=== PATIENT | male | born 1945 | race Caucasian/White ===

== ENCOUNTER 2020-11-13 00:18 | Inpatient (IN) ==
--- NOTE | 2020-11-13 00:31 | Emergency Department Note ---
ED Visit Note I have seen and examined this patient with Eusebio Robles and generally agree with the treatment plan as discussed. .
[2020-11-13] MEDS ORDERED: ONDANSETRON INJ 2 MG/ML 2 ML VIAL IV STA (00:34)
[2020-11-13] MEDS ORDERED: MoRPHine SULFATE 4 MG/ML 1 ML CARP\\VIAL IV STA (00:34)
--- NOTE | 2020-11-13 00:41 | Emergency Department Note ---
History of Present Illness General Chief complaint: Abdominal Pain Stated complaint: SWELLING/PAIN IN ABDOMEN Time Seen by Provider: 11/13/20 00:29 History of Present Illness Maximum Pain Intensity: 10 This is a 75-year-old male who presents to the emergency department via private vehicle with complaints of "swelling/pain in abdomen". The patient notes he began yesterday with some upper abdominal discomfort. He notes that it seemed to subside into today but then notes he ate dinner this evening and then pain seemed to worsen. He then vomited around 10 PM. Current pain 10/10. He feels quite bloated and notes his abdomen is distended. He points to the upper quadrants and epigastric region as a location of pain. He denies any fevers, chills, chest pain or shortness of breath. Last bowel movement was yesterday. His only abdominal surgery in the past was appendectomy. He also notes a history of back surgery. He notes pain is worse with pressing the abdomen as well as after eating. Home Medications Medication Instructions Recorded Confirmed Type allopurinol 300 mg PO QAM 11/13/20 11/13/20 History lisinopril 10 mg PO QAM 11/13/20 11/13/20 History multivitamin 1 tab PO DAILY 11/13/20 11/13/20 History rosuvastatin 10 mg PO DAILY 11/13/20 11/13/20 History Allergies Allergy/AdvReac Type Severity Reaction Status Date / Time No Known Allergies Allergy Unverified 11/13/20 01:19 Past Med/Surg History Medical History Dyslipidemia Gout Hypertension Surgical History History of appendectomy History of back surgery Social History Smoking Status: Former smoker Hx Alcohol Use: No Hx Substance Use: No Preferred Language: Mohawk Communication Ability: Effective Rn Neurosurgical Required: No Beliefs That Will Affect Care: None Current Living Situation: Spouse Feels Safe at Home: Yes Assistive Devices: Denture - Upper, Denture - Lower, Glasses, Hearing Aid - Left and Hearing Aid - Right Review of Systems A total of 10 systems reviewed and were otherwise negative Physical Exam Vital Signs Vital Signs - 24 hr 11/13/20 00:24 11/13/20 00:46 11/13/20 01:08 Temperature 35.7 C L Temperature Source Temporal Artery Scan Pulse Rate 99 H Pulse Rate [Bilateral Apical] 81 78 Respiratory Rate 18 20 20 Blood Pressure 166/105 H Blood Pressure [Left Arm] 148/99 H 137/91 Blood Pressure Mean 125 Blood Pressure Mean [Left Arm] 115 106 Pulse Oximetry 93 93 92 Oxygen Delivery Method Room Air Room Air Room Air Sepsis Recent Fever Within 48 Hours No Sepsis New/Unexplained Change in Mental Status N/A Sepsis Action Taken by Nursing No Action Required 11/13/20 01:26 11/13/20 02:14 11/13/20 02:57 Temperature 36.7 C Temperature Source Oral Pulse Rate Pulse Rate [Bilateral Apical] 77 72 Respiratory Rate 20 20 Blood Pressure Blood Pressure [Left Arm] 136/88 155/91 H Blood Pressure Mean Blood Pressure Mean [Left Arm] 104 112 Pulse Oximetry 92 94 Oxygen Delivery Method Room Air Room Air Sepsis Recent Fever Within 48 Hours Sepsis New/Unexplained Change in Mental Status Sepsis Action Taken by Nursing 11/13/20 03:09 11/13/20 04:37 Temperature Temperature Source Pulse Rate Pulse Rate [Bilateral Apical] 78 74 Respiratory Rate 20 20 Blood Pressure Blood Pressure [Left Arm] 131/86 142/90 H Blood Pressure Mean Blood Pressure Mean [Left Arm] 101 107 Pulse Oximetry 92 94 Oxygen Delivery Method Room Air Room Air Sepsis Recent Fever Within 48 Hours Sepsis New/Unexplained Change in Mental Status Sepsis Action Taken by Nursing VITAL SIGNS - Vital signs and nursing notes were reviewed. Hypertensive, mildly tachcyardic, hypothermic by triage assessment but not hypothermic on exam. GENERAL - 75-year-old male appearing his stated age who is in no acute distress. Communicates well with provider and answers questions appropriately. SKIN - Without rashes. HEAD - NC/AT. EYES - PERRL with EOMI bilaterally. Sclera anicteric. EARS - No deformities of external structures noted on gross examination bilaterally. NOSE - Midline and without cyanosis. No epistaxis or purulent drainage noted. MOUTH/OROPHARYNX - Without perioral cyanosis. NECK - Neck with FROM. No nuchal rigidity. LUNGS - Chest wall symmetric without accessory muscle use, intercostals retractions, or central cyanosis. Normal vesicular breath sounds CTA B/L. No wheezes, rales, or rhonchi appreciated. CARDIAC - RRR with S1/S2. No murmur, rubs, or gallops appreciated. ABDOMEN - Abdominal contour normal without pulsations or visible masses. BS normoactive all four quadrants. Epigastric abdominal tenderness palpation. The abdomen is not rigid but is somewhat tense to exam. There is rebound tenderness in the epigastric region. No palpable masses, hepatosplenomegaly, or ascites noted. EXTREMITIES - No clubbing or peripheral cyanosis. +5/5 strength noted in UE/LE bilaterally. NEUROLOGIC - Cranial nerves II through XII grossly intact. Sensory intact to light touch throughout. PSYCH - A&O, and cooperates fully with examiner. Pt is very pleasant and interacts well with examiner. Course Administered Medications Sodium Chloride (Nss 1000ml) 1,000 mls @ 75 mls/hr IV .[id number] [facility] Stop: 12/13/20 05:59 Last Admin: 11/13/20 06:06 Dose: 75 mls/hr Documented by: [id number] Discontinued Medications Sodium Chloride (Nss) 500 mls @ 125 mls/hr IV .Q4H [facility] Stop: 12/13/20 00:44 Last Admin: 11/13/20 06:08 Dose: Not Given Documented by: [id number] Infusion: 11/13/20 05:03 Dose: 0 mls/hr Documented by: [id number] Admin: 11/13/20 00:53 Dose: 125 mls/hr Documented by: [id number] Ioversol (Ioversol 100ml) 100 ml IV ONCE ONE Stop: 11/13/20 02:32 Last Admin: 11/13/20 02:31 Dose: 92 ml Documented by: [id number] Morphine Sulfate (Morphine Sulfate 4 Mg/Ml 1 Ml Carp\\Vial) 4 mg IV NOW STA Stop: 11/13/20 00:35 Last Admin: 11/13/20 00:53 Dose: 4 mg Documented by: [id number] Ondansetron HCl (Ondansetron Inj 2 Mg/Ml 2 Ml Vial) 4 mg IV NOW STA Stop: 11/13/20 00:35 Last Admin: 11/13/20 00:53 Dose: 4 mg Documented by: [id number] Medical Decision Making Laboratory Data Result diagrams: 11/13/20 00:39 11/13/20 00:39 Lab Results 11/13/20 11/13/20 11/13/20 Range/Units 00:39 00:39 02:55 WBC 11.30 H (4.8-10.8) K/uL RBC 4.98 (4.7-6.1) M/uL Hgb 16.3 (14.0-18.0) g/dL Hct 47.3 (42-52) % MCV 95.0 (80-100) fL MCH 32.7 (25-34) pg MCHC 34.5 (32-36) g/dL RDW Std Deviation 47.0 H (36.4-46.3) fL RDW Coeff of Samara 13.6 (11.5-14.5) % Plt Count 254 (130-400) K/uL MPV 9.2 (7.4-10.4) fL Immature Gran % (Auto) 0.2 % Neut % (Auto) 70.6 % Lymph % (Auto) 19.0 % [place] % (Auto) 9.7 % Eos % (Auto) 0.4 % Baso % (Auto) 0.1 % Neut # (Auto) 7.98 H (1.4-6.5) K/uL Lymph # (Auto) 2.15 (1.2-3.4) K/uL [place] # (Auto) 1.10 H (0.11-0.59) K/uL Eos # (Auto) 0.04 (0-0.5) K/uL Baso # (Auto) 0.01 (0-0.2) K/uL Immature Gran # (Auto) 0.02 (0.00-0.02) K/uL Sodium 139 (136-145) mmol/L Potassium 4.1 (3.5-5.1) mmol/L Chloride 105 (98-107) mmol/L Carbon Dioxide 26 (21-32) mmol/L Anion Gap 8.0 (3-11) BUN 17 (7-18) mg/dl Creatinine 1.00 (0.6-1.4) mg/dl Est Cr Clr Drug Dosing 81.8 ml/min Est GFR ( Amer) 86.2 Est GFR (Non-Af Amer) 74.3 BUN/Creatinine Ratio 16.7 (10-20) Glucose 138 H (70-99) mg/dl Calcium 9.7 (8.5-10.1) mg/dl Magnesium 1.9 (1.8-2.4) mg/dl Total Bilirubin 0.5 (0.2-1) mg/dl AST 22 (15-37) U/L ALT 38 (12-78) U/L Alkaline Phosphatase 75 (45-117) U/L Total Protein 7.8 (6.4-8.2) gm/dl Albumin 4.0 (3.4-5.0) gm/dl Globulin 3.8 (2.5-4.0) gm/dl Albumin/Globulin Ratio 1.1 (0.9-2) Lipase 84 (73-393) U/L COVID-19 Eval [facility] SARS-CoV-2, RNA, NAAT (NEGATIVE) 11/13/20 Range/Units 02:55 WBC (4.8-10.8) K/uL RBC (4.7-6.1) M/uL Hgb (14.0-18.0) g/dL Hct (42-52) % MCV (80-100) fL MCH (25-34) pg MCHC (32-36) g/dL RDW Std Deviation (36.4-46.3) fL RDW Coeff of Samara (11.5-14.5) % Plt Count (130-400) K/uL MPV (7.4-10.4) fL Immature Gran % (Auto) % Neut % (Auto) % Lymph % (Auto) % [place] % (Auto) % Eos % (Auto) % Baso % (Auto) % Neut # (Auto) (1.4-6.5) K/uL Lymph # (Auto) (1.2-3.4) K/uL [place] # (Auto) (0.11-0.59) K/uL Eos # (Auto) (0-0.5) K/uL Baso # (Auto) (0-0.2) K/uL Immature Gran # (Auto) (0.00-0.02) K/uL Sodium (136-145) mmol/L Potassium (3.5-5.1) mmol/L Chloride (98-107) mmol/L Carbon Dioxide (21-32) mmol/L Anion Gap (3-11) BUN (7-18) mg/dl Creatinine (0.6-1.4) mg/dl Est Cr Clr Drug Dosing ml/min Est GFR ( Amer) Est GFR (Non-Af Amer) BUN/Creatinine Ratio (10-20) Glucose (70-99) mg/dl Calcium (8.5-10.1) mg/dl Magnesium (1.8-2.4) mg/dl Total Bilirubin (0.2-1) mg/dl AST (15-37) U/L ALT (12-78) U/L Alkaline Phosphatase (45-117) U/L Total Protein (6.4-8.2) gm/dl Albumin (3.4-5.0) gm/dl Globulin (2.5-4.0) gm/dl Albumin/Globulin Ratio (0.9-2) Lipase (73-393) U/L COVID-19 Eval Order SARS-CoV-2, RNA, NAAT NEGATIVE (NEGATIVE) Imaging Data Radiologist's Impression: CT ABDOMEN & PELVIS With Contrast: Distended bowel loops compatible with obstruction with the transition point at the mid lower abdomen where there is bowel wall thickening suggestive of enteritis. Mild mesenteric stranding/edema. Diverticulosis. Areas of mild colonic wall thickening or underdistention. Nephrolithiasis. Mild right renal pelviectasis or extrarenal pelvis. No evidence of ureteral stone. Fat-containing left inguinal hernia. Mild basilar densities, likely atelectasis. Radiologist: Nidhi West M.D. Study ready at 02:33 and initial results transmitted at 03:07 MDM Narrative Patient was seen and evaluated as above in room A12. Review was performed of nursing notes and vital signs. I did review pertinent previous visits and patient history. After obtaining a thorough history and physical examination the above work up was performed. Patient presents to us today with atraumatic abdominal pain. This worsened today after eating. He had episode of vomiting. On examination the patient does have a distended and tender abdomen. Exam consistent with that of likely bowel obstruction. Patient here was given IV fluids, IV morphine, IV Zofran. He is reevaluated with improvement. CT scan was obtained. This reveals bowel obstruction. NG tube placed. Patient feeling much better after this. I do believe that further evaluation and management inpatient setting is warranted. Case discussed with the general surgeon, Dr. Scott. His team will see the patient in the a.m. Will be admitted to medicine. Case then discussed with the hospitalist. Please refer to further documentation regarding his stay. Case was discussed with the attending physician. In the evaluation and treatment of this patient, the following differential diagnoses were considered: ASC, SD, Pneumonia, GERD, Cholecystitis, Ascending Cholangitis, Cholydocholithiasis, Bowel Obstruction, PE, Amongst Others. Impression & Plan SBO (small bowel obstruction), Acute upper abdominal pain Discharge Plan Visit Data Chief Complaint: Abdominal Pain Stated Complaint: SWELLING/PAIN IN ABDOMEN ED Provider: Monico Tirado ED Midlevel Provider: Eusebio Robles Discharge Problem: SBO (small bowel obstruction), Acute upper abdominal pain Patient Disposition: Admitted As Inpatient Condition: Good Discharge Instructions Interventions: ED Discharge Assessment Last Done: 11/13/20 05:21
[2020-11-13] MEDS: SODIUM CHLORIDE 0.9% 500 ML IV SCH ×2 (00:53→06:08)
[2020-11-13 00:57] LABS: Basophils # (auto) 0.01 K/uL (0-0.2); Basophils % (auto) 0.1 %; Eosinophils # (auto) 0.04 K/uL (0-0.5); Eosinophils % (auto) 0.4 %; Hematocrit (blood only) 47.3 % (42-52); Hemoglobin 16.3 g/dL (14.0-18.0); Immature Granulocytes # (auto) 0.02 K/uL (0.00-0.02); Immature Granulocytes % (auto) 0.2 %; Lymphocytes # (auto) 2.15 K/uL (1.2-3.4); Mean Corpuscular Hemoglobin 32.7 pg (25-34); Mean Corpuscular Hgb Conc 34.5 g/dL (32-36); Mean Platelet Volume 9.2 fL (7.4-10.4); Monocytes % (auto) 9.7 %; Neutrophils # (auto) 7.98 K/uL (1.4-6.5); Neutrophils % (auto) 70.6 %; Platelet Count 254 K/uL (130-400); RDW Coefficient of Variation 13.6 % (11.5-14.5); Red Blood Count 4.98 M/uL (4.7-6.1)
[2020-11-13 01:35] LABS: BUN Creatinine Ratio 16.7 (10-20); Calcium 9.7 mg/dl (8.5-10.1); Creatinine Clr Calc Pharmacy 81.8 ml/min; Est GFR (African American) 86.2; Est GFR (Non-African American) 74.3; Potassium 4.1 mmol/L (3.5-5.1)
[2020-11-13 01:38] LABS: Albumin Globulin Ratio 1.1 (0.9-2); Bilirubin,Total 0.5 mg/dl (0.2-1); Globulin 3.8 gm/dl (2.5-4.0); Total Protein 7.8 gm/dl (6.4-8.2)
[2020-11-13] MEDS ORDERED: IOVERSOL 100ml IV ONE (02:31)
--- NOTE | 2020-11-13 03:10 | Emergency Department Note ---
History of Present Illness General Chief complaint: Abdominal Pain Stated complaint: SWELLING/PAIN IN ABDOMEN Time Seen by Provider: 11/13/20 00:29 History of Present Illness Maximum Pain Intensity: 6 Home Medications Medication Instructions Recorded Confirmed Type allopurinol 300 mg PO QAM 11/13/20 11/13/20 History lisinopril 10 mg PO QAM 11/13/20 11/13/20 History multivitamin 1 tab PO DAILY 11/13/20 11/13/20 History rosuvastatin 10 mg PO DAILY 11/13/20 11/13/20 History Allergies Allergy/AdvReac Type Severity Reaction Status Date / Time No Known Allergies Allergy Unverified 11/13/20 01:19 Past Med/Surg History Medical History Dyslipidemia Gout Hypertension Surgical History History of appendectomy History of back surgery Social History Smoking Status: Never smoker Preferred Language: Greek Feels Safe at Home: Yes Physical Exam Vital Signs Vital Signs - 24 hr 11/13/20 00:24 11/13/20 00:46 11/13/20 01:08 Temperature 35.7 C L Temperature Source Temporal Artery Scan Pulse Rate 99 H Pulse Rate [Bilateral Apical] 81 78 Respiratory Rate 18 20 20 Blood Pressure 166/105 H Blood Pressure [Left Arm] 148/99 H 137/91 Blood Pressure Mean 125 Blood Pressure Mean [Left Arm] 115 106 Pulse Oximetry 93 93 92 Oxygen Delivery Method Room Air Room Air Room Air Sepsis Recent Fever Within 48 Hours No Sepsis New/Unexplained Change in Mental Status N/A Sepsis Action Taken by Nursing No Action Required 11/13/20 01:26 11/13/20 02:14 11/13/20 02:57 Temperature 36.7 C Temperature Source Oral Pulse Rate Pulse Rate [Bilateral Apical] 77 72 Respiratory Rate 20 20 Blood Pressure Blood Pressure [Left Arm] 136/88 155/91 H Blood Pressure Mean Blood Pressure Mean [Left Arm] 104 112 Pulse Oximetry 92 94 Oxygen Delivery Method Room Air Room Air Sepsis Recent Fever Within 48 Hours Sepsis New/Unexplained Change in Mental Status Sepsis Action Taken by Nursing Course Administered Medications Sodium Chloride (Nss) 500 mls @ 125 mls/hr IV .Q4H [facility] Stop: 12/13/20 00:44 Last Admin: 11/13/20 00:53 Dose: 125 mls/hr Documented by: [id number] Discontinued Medications Ioversol (Ioversol 100ml) 100 ml IV ONCE ONE Stop: 11/13/20 02:32 Last Admin: 11/13/20 02:31 Dose: 92 ml Documented by: [id number] Morphine Sulfate (Morphine Sulfate 4 Mg/Ml 1 Ml Carp\Vial) 4 mg IV NOW STA Stop: 11/13/20 00:35 Last Admin: 11/13/20 00:53 Dose: 4 mg Documented by: [id number] Ondansetron HCl (Ondansetron Inj 2 Mg/Ml 2 Ml Vial) 4 mg IV NOW STA Stop: 11/13/20 00:35 Last Admin: 11/13/20 00:53 Dose: 4 mg Documented by: [id number] Medical Decision Making Laboratory Data Result diagrams: 11/13/20 00:39 11/13/20 00:39 Lab Results 11/13/20 11/13/20 11/13/20 Range/Units 00:39 00:39 02:55 WBC 11.30 H (4.8-10.8) K/uL RBC 4.98 (4.7-6.1) M/uL Hgb 16.3 (14.0-18.0) g/dL Hct 47.3 (42-52) % MCV 95.0 (80-100) fL MCH 32.7 (25-34) pg MCHC 34.5 (32-36) g/dL RDW Std Deviation 47.0 H (36.4-46.3) fL RDW Coeff of Samara 13.6 (11.5-14.5) % Plt Count 254 (130-400) K/uL MPV 9.2 (7.4-10.4) fL Immature Gran % (Auto) 0.2 % Neut % (Auto) 70.6 % Lymph % (Auto) 19.0 % [place] % (Auto) 9.7 % Eos % (Auto) 0.4 % Baso % (Auto) 0.1 % Neut # (Auto) 7.98 H (1.4-6.5) K/uL Lymph # (Auto) 2.15 (1.2-3.4) K/uL [place] # (Auto) 1.10 H (0.11-0.59) K/uL Eos # (Auto) 0.04 (0-0.5) K/uL Baso # (Auto) 0.01 (0-0.2) K/uL Immature Gran # (Auto) 0.02 (0.00-0.02) K/uL Sodium 139 (136-145) mmol/L Potassium 4.1 (3.5-5.1) mmol/L Chloride 105 (98-107) mmol/L Carbon Dioxide 26 (21-32) mmol/L Anion Gap 8.0 (3-11) BUN 17 (7-18) mg/dl Creatinine 1.00 (0.6-1.4) mg/dl Est Cr Clr Drug Dosing 81.8 ml/min Est GFR ( Amer) 86.2 Est GFR (Non-Af Amer) 74.3 BUN/Creatinine Ratio 16.7 (10-20) Glucose 138 H (70-99) mg/dl Calcium 9.7 (8.5-10.1) mg/dl Total Bilirubin 0.5 (0.2-1) mg/dl AST 22 (15-37) U/L ALT 38 (12-78) U/L Alkaline Phosphatase 75 (45-117) U/L Total Protein 7.8 (6.4-8.2) gm/dl Albumin 4.0 (3.4-5.0) gm/dl Globulin 3.8 (2.5-4.0) gm/dl Albumin/Globulin Ratio 1.1 (0.9-2) Lipase 84 (73-393) U/L COVID-19 Eval Order Covid19 IDNow [facility] Imaging Data Radiologist's Impression: CT ABDOMEN & PELVIS With Contrast: Distended bowel loops compatible with obstruction with the transition point at the mid lower abdomen where there is bowel wall thickening suggestive of enteritis. Mild mesenteric stranding/edema. Diverticulosis. Areas of mild colonic wall thickening or underdistention. Nephrolithiasis. Mild right renal pelviectasis or extrarenal pelvis. No evidence of ureteral stone. Fat-containing left inguinal hernia. Mild basilar densities, likely atelectasis. Radiologist: Nidhi West M.D. Study ready at 02:33 and initial results transmitted at 03:07 Discharge Plan Visit Data Chief Complaint: Abdominal Pain Stated Complaint: SWELLING/PAIN IN ABDOMEN ED Provider: Monico Tirado ED Midlevel Provider: Eusebio Robles Prescriptions Prescriptions: No Action lisinopril 10 mg tablet 10 mg PO QAM RF: 0 allopurinol 300 mg tablet 300 mg PO QAM RF: 0 rosuvastatin 10 mg tablet 10 mg PO DAILY RF: 0 multivitamin Tablet 1 tab PO DAILY RF: 0
[2020-11-13 04:33] LABS: Magnesium 1.9 mg/dl (1.8-2.4)
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
[2020-11-13] MEDS ORDERED: PROMETHAZINE HCL 12.5 MG in SODIUM CHLORIDE 0.9% 50 ML IV PRN (06:00)
[2020-11-13] MEDS ORDERED: ACETAMINOPHEN 1,000 MG/100 ML VIAL IV PRN (06:00)
[2020-11-13] MEDS ORDERED: KETOROLAC TROMETHAMINE 15 MG/ML VIAL IV PRN (06:00)
[2020-11-13] MEDS ORDERED: MAGNESIUM SULFATE / D5W 1 GM/100 ML BAG IV ONE (06:00)
[2020-11-13] MEDS: SODIUM CHLORIDE 0.9% 1000ML 1,000 ML IV SCH ×2 (06:06→17:19)
[2020-11-13 06:53] LABS: INR 1.1 (0.9-1.1); Prothrombin Time 11.4 Seconds (9.0-12.0)
--- NOTE | 2020-11-13 08:01 | CT Scan Report ---
CT SCAN OF THE ABDOMEN AND PELVIS WITH IV CONTRAST CLINICAL HISTORY: Upper abdominal pain. Nausea and vomiting. COMPARISON STUDY: No priors. TECHNIQUE: Following the IV administration of 92 cc of Optiray 320, CT scan of the abdomen and pelvi s is performed from the lung bases to the proximal femora. Images are reviewed in the axial, sagittal , and coronal planes. IV contrast was administered without complication. A dose lowering technique wa s utilized adhering to the principles of ALARA. CT DOSE: 1121.20 mGycm FINDINGS: Lung bases: The heart is normal in size and without pericardial effusion. The coronary arteries are d ensely calcified. There is a small hiatal hernia. The lung bases are clear noting bibasilar scarring/ atelectasis. Liver: The contrast-enhanced liver is normal in size, contour, and attenuation. There is no intrahepa tic biliary ductal dilatation. The hepatic veins and portal veins are patent. Gallbladder: Unremarkable. Spleen: Normal in size and attenuation. Pancreas: Unremarkable. Adrenal glands: Unremarkable. Kidneys: The contrast enhanced kidneys demonstrate mild cortical atrophy and are without hydronephros is. The kidneys enhance symmetrically. There are numerous bilateral nonobstructing renal calculi whic h measure up to 10 mm. Abdominal vasculature: The abdominal aorta is normal in course and caliber noting moderate to advance d atherosclerotic calcification. Bowel: The proximal small bowel loops are distended and fluid-filled measuring up to 4.1 cm in diamet er. There is a transition point in the central pelvis seen on image #335. The distal small bowel loop s are decompressed. There is a long segment of significant wall thickening and mucosal hyperemia invo lving the ileum just below the transition point. Interloop fluid is noted. There is no pneumatosis in testinalis or portal venous gas. There is moderate colonic diverticulosis without CT evidence of acut e diverticulitis. The appendix is nonvisualized. Peritoneum: There is no intraperitoneal free air or abdominal ascites. Lymphadenopathy: None. Pelvic viscera: The prostate gland is enlarged and heterogeneous noting median lobe hypertrophy. The bladder is normal as imaged. There are left larger than right fat-containing inguinal hernias. Skeletal structures: The skeletal structures are osteopenic. There is evidence of laminectomy and pos terior fusion seen from L2-S1. Lucency around the interpedicular screws at S1 suggests loosening. No lytic or blastic lesions are seen. IMPRESSION: 1. Findings are consistent with a small bowel obstruction. A transition point is identified involving small bowel loops in the central pelvis. 2. There is a long segment of wall thickening and mucosal hyperemia involving the distal small bowel at and below the transition point. The obstruction is likely related to inflammation. Correlate clini airam for evidence of a nonspecific enteritis. 4. There is trace interloop fluid. No pneumatosis intestinalis or portal venous gas is identified. 5. Moderate colonic diverticulosis without CT evidence of acute diverticulitis. 6. Bilateral nephrolithiasis. 7. Lucency around the interpedicular screws at S1 suggests loosening. 8. Additional findings as above. ACT 112: Negative or not required by law. Electronically signed by: Jori Jeong M.D. 11/13/2020 8:00 AM
[2020-11-13] MEDS ORDERED: COUGH DROP (SUGAR FREE) LOZ 24 LOZ/1 BOX BUCCAL ONE (08:29)
[2020-11-13] MEDS: ENOXAPARIN INJ 40 MG/0.4 ML SYR SQ SCH (08:30)
[2020-11-13] MEDS: ROSUVASTATIN CALCIUM 10 MG TAB PO SCH (08:30)
[2020-11-13] MEDS: MULTIVITAMIN TAB PO SCH (08:31)
[2020-11-13] MEDS: lisinopril 10 MG TAB PO SCH (08:31)
[2020-11-13] MEDS: allopurinoL 300 MG TAB PO SCH (08:31)
[2020-11-13 09:40] LABS: Appearance Urine Clear (Clear); Bacteria Urine Automated Negative (Negative); Bilirubin Urine Negative (Negative); Blood Urine Trace (Negative); Color Urine Yellow; Glucose Urine UA Negative (Negative); Ketones Urine Negative (Negative); Leukocyte Esterase Urine Negative (Negative); Nitrite Urine Negative (Negative); Protein Urine Negative (Negative); Specific Gravity Urine > 1.045 (1.000-1.030); Urobilinogen Urine Negative (Negative)
--- NOTE | 2020-11-13 09:53 | Surgery Consultation ---
Date of Consultation November 13, 2020 Assessment & Plan (1) SBO (small bowel obstruction): This is a 75y M with a PMH of HTN and HLD who presents to the [facility] ED on 11/13/20 with complaints of abdominal pain and bloating. Workup in the ER with a CT a/p revealed findings of a small bowel obstruction with a long segment of wall thickening and mucosal hyperemia involving the distal small bowel at and below the transition point, the obstruction is likely related to inflammation. Patient has generalized discomfort in his abdomen. History of an open appendectomy. Last colonoscopy was in 2005 he reports is normal. Denies history of IBD in his family. He has since had an NGT placed and reports improvement in his symptoms. We agree with a trial of conservative management. Keep NPO with NGT for now until return of bowel function. Would likely benefit from a colonoscopy as an outpatient and possible GI consult given CT scan findings. We will continue to follow. Supervising Physician Co-Signing Physician Notes Patient seen and examined, labs and imaging reviewed, agree with above. 75-year-old male with prior open appendectomy admitted overnight with small bowel obstruction. He started having pain and bloating yesterday afternoon, had a loose and runny bowel movement yesterday at lunchtime. He was admitted overnight after CT scan suggested small bowel obstruction. This morning he is feeling better and has an NG tube in place. He denies any flatus or bowel movements this morning. On exam he is afebrile with stable vitals. His abdomen is soft, slightly distended, minimally tender to palpation with no rebound or guarding. His lab work is unremarkable. His CT scan shows dilated small bowel leading down to a transition point which contains a long segment of thickened and hyperemic distal bowel, consistent with an inflammatory process. Patient with partial small bowel obstruction, possibly related to an infectious enteritis versus inflammatory condition such as Crohn's Continue NG tube until return of bowel function Repeat KUB in morning Would recommend stool studies Also recommend possible GI consultation as an outpatient for colonoscopy, or possibly even as an inpatient if symptoms do not resolve No surgery at this time Surgery will continue to follow, call with questions or concerns History of Present Illness Attending Physician: Lazaro Francisco MD History of Present Illness This is a 75y M with a PMH of HTN and HLD who presents to the [facility] ED on 11/13/20 with complaints of abdominal pain and bloating. Patient reports waking up on Wednesday AM with abdominal bloating, he went for a 1/2 mile walk, and when he returned tried taking some gas-ex without relief. He decided to take some Pepto- bismol and had some improvement in the afternoon. 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 Again he tried taking some Pepto-bismol and some laxatives without much relief. Patient reports some central abdominal pain as well and as symptoms continued to progress he decided to come into the ER for further evaluation. In the ER a CT a/p was obtained that revealed a small bowel obstruction with a long segment of wall thickening and mucosal hyperemia involving the distal small bowel at and below the transition point, the obstruction is likely related to inflammation. Patient reports having a bout of loose stool yesterday around lunchtime. He is not passing flatus. He endorses some nausea and "spitting up". Denies any history of bowel obstruction in the past. His abdominal surgical history includes an open appendectomy. He believes his last colonoscopy was in 2005 and states it was normal at that time. Patient reports some improvement in his symptoms since admission. Allergies Allergy/AdvReac Type Severity Reaction Status Date / Time No Known Allergies Allergy Unverified 11/13/20 01:19 Home Medications Medication Instructions Recorded Confirmed Type allopurinol 300 mg PO QAM 11/13/20 11/13/20 History lisinopril 10 mg PO QAM 11/13/20 11/13/20 History multivitamin 1 tab PO DAILY 11/13/20 11/13/20 History rosuvastatin 10 mg PO DAILY 11/13/20 11/13/20 History Patient History Medical History Dyslipidemia Gout Hypertension Surgical History History of appendectomy History of back surgery Social History Smoking Status: Former smoker Hx Alcohol Use: No Hx Substance Use: No Preferred Language: Nauruan Communication Ability: Effective Content Checker Required: No Beliefs That Will Affect Care: None Current Living Situation: Spouse Feels Safe at Home: Yes Assistive Devices: None Review of Systems Constitutional: no fever and no chills Gastrointestinal: + abdominal pain (central abdominal pain), + bloating, + nausea, + vomiting (some "spitting up") and + diarrhea/loose stools (yesterday) Physical Exam Physical Exam: awake/alert Respiratory: normal respiratory effort Gastrointestinal (Abdomen): Inspection/Auscultation: + abdomen distended (mild) and + abdominal surgical scar (scar in R mid/lower abdomen from prior open appendectomy) Percussion/Palpation: + abdomen tender (generalized discomfort to palpation) and abdomen soft Results & Data ([facility]) Vital Signs (Past 12 Hours) Vital Signs Temp Pulse Pulse Pulse Resp BP BP 11/13/20 07:55 36.9 C 73 18 11/13/20 05:45 36.4 C L 83 18 158/98 H 11/13/20 05:20 71 20 145/95 H 11/13/20 04:37 74 20 142/90 H 11/13/20 03:09 78 20 131/86 11/13/20 02:57 36.7 C 11/13/20 02:14 72 20 155/91 H 11/13/20 01:26 77 20 136/88 11/13/20 01:08 78 20 137/91 11/13/20 00:46 81 20 148/99 H 11/13/20 00:24 35.7 C L 99 H 18 166/105 H BP Pulse Ox 11/13/20 07:55 147/92 H 94 11/13/20 05:45 92 11/13/20 05:20 94 11/13/20 04:37 94 11/13/20 03:09 92 11/13/20 02:57 11/13/20 02:14 94 11/13/20 01:26 92 11/13/20 01:08 92 11/13/20 00:46 93 11/13/20 00:[address] SCAN OF THE ABDOMEN AND PELVIS WITH IV CONTRAST CLINICAL HISTORY: Upper abdominal pain. Nausea and vomiting. COMPARISON STUDY: No priors. TECHNIQUE: Following the IV administration of 92 cc of Optiray 320, CT scan of the abdomen and pelvis is performed from the lung bases to the proximal femora. Images are reviewed in the axial, sagittal, and coronal planes. IV contrast was administered without complication. A dose lowering technique was utilized adhering to the principles of ALARA. CT DOSE: 1121.20 mGycm FINDINGS: Lung bases: The heart is normal in size and without pericardial effusion. The coronary arteries are densely calcified. There is a small hiatal hernia. The lung bases are clear noting bibasilar scarring/atelectasis. Liver: The contrast-enhanced liver is normal in size, contour, and attenuation. There is no intrahepatic biliary ductal dilatation. The hepatic veins and portal veins are patent. Gallbladder: Unremarkable. Spleen: Normal in size and attenuation. Pancreas: Unremarkable. Adrenal glands: Unremarkable. Kidneys: The contrast enhanced kidneys demonstrate mild cortical atrophy and are without hydronephrosis. The kidneys enhance symmetrically. There are numerous bilateral nonobstructing renal calculi which measure up to 10 mm. Abdominal vasculature: The abdominal aorta is normal in course and caliber noting moderate to advanced atherosclerotic calcification. Bowel: The proximal small bowel loops are distended and fluid-filled measuring up to 4.1 cm in diameter. There is a transition point in the central pelvis seen on image #335. The distal small bowel loops are decompressed. There is a long segment of significant wall thickening and mucosal hyperemia involving the ileum just below the transition point. Interloop fluid is noted. There is no pneumatosis intestinalis or portal venous gas. There is moderate colonic diverticulosis without CT evidence of acute diverticulitis. The appendix is nonvisualized. Peritoneum: There is no intraperitoneal free air or abdominal ascites. Lymphadenopathy: None. Pelvic viscera: The prostate gland is enlarged and heterogeneous noting median lobe hypertrophy. The bladder is normal as imaged. There are left larger than right fat-containing inguinal hernias. Skeletal structures: The skeletal structures are osteopenic. There is evidence of laminectomy and posterior fusion seen from L2-S1. Lucency around the interpedicular screws at S1 suggests loosening. No lytic or blastic lesions are seen. IMPRESSION: 1. Findings are consistent with a small bowel obstruction. A transition point is identified involving small bowel loops in the central pelvis. 2. There is a long segment of wall thickening and mucosal hyperemia involving the distal small bowel at and below the transition point. The obstruction is likely related to inflammation. Correlate clinically for evidence of a nonspecific enteritis. 4. There is trace interloop fluid. No pneumatosis intestinalis or portal venous gas is identified. 5. Moderate colonic diverticulosis without CT evidence of acute diverticulitis. 6. Bilateral nephrolithiasis. 7. Lucency around the interpedicular screws at S1 suggests loosening. 8. Additional findings as above. ACT 112: Negative or not required by law. Electronically signed by: Jori Jeong M.D. 11/13/2020 8:00 AM PG Care Time/CCT Total # of Minutes Spent Total Time Spent with Patient: Total time spent is greater than 50% in coordination of care (as documented) at patient's floor/unit and/or counseling patient: Coding Level of Care Code 66098 Initial Inpt Care Lvl 1 Diagnoses SBO (small bowel obstruction) K56.609
--- NOTE | 2020-11-13 15:28 | Hospitalist Progress Note ---
Date of Service November 13, 2020 Assessment & Plan (1) SBO (small bowel obstruction): Small bowel obstruction Remote H/O appendectomy -CT ABD:Findings are consistent with a small bowel obstruction. A transition point is identified involving small bowel loops in the central pelvis. There is a long segment of wall thickening and mucosal hyperemia involving the distal small bowel at and below the transition point. The obstruction is likely related to inflammation. Correlate clinically for evidence of a nonspecific enteritis. There is trace interloop fluid. No pneumatosis intestinalis or portal venous gas is identified. Moderate colonic diverticulosis without CT evidence of acute diverticulitis. Bilateral nephrolithiasis. Lucency around the interpedicular screws at S1 suggests loosening. -Continue NG tube -Continue IV fluids, bowel rest -Pain is controlled -Appreciate surgery input -Repeat KUB in a.m. -Conservative management for now Hypertension Slightly elevated likely situational Continue Lisinopril Hyperlipidemia on statin Prediabetes HbA1C: 6.23 Feb 2020 [employer] Past tobacco use As per records DVT x: SQ Lovenox Code Status Full code Admission and Anticipated Discharge Date Admission Date: November 13, 2020 Subjective Patient is seen and examined at bedside Nausea, vomiting resolved Has NG tube in place No flatus or bowel movement today Denies chest pain, dyspnea, dizziness, or abdominal pain Offers no other complaints Review of Systems Review of Systems: All systems reviewed & are unremarkable except as noted in HPI & below Physical Exam Physical Exam: Physical Exam: Vitals signs as noted above General Appearance:Obese, no apparent distress, +NG tube Head: normocephalic, Atraumatic Eyes: normal inspection, EOMI Neck: supple, Trachea midline Respiratory/Chest: Normal breath sounds, CTA Cardiovascular: S1, S2, No murmur Abdomen/GI:Soft, Non tender, Decreased Bowel sounds Extremities/Musculoskelatal:normal inspection, no edema Neurologic/Psych:AAOX3, grossly no focal neurological deficits Skin: normal color, warm Results & Data Results & Data ([facility]) Vital Signs (Past 12 Hours) Vital Signs Temp Pulse Pulse Resp BP BP Pulse Ox 11/13/20 07:55 36.9 C 73 18 147/92 H 94 11/13/20 05:45 36.4 C L 83 18 158/98 H 92 11/13/20 05:20 71 20 145/95 H 94 11/13/20 04:37 74 20 142/90 H 94 Laboratory Results Short CBC 11/13/20 Range/Units 00:39 WBC 11.30 H (4.8-10.8) K/uL Hgb 16.3 (14.0-18.0) g/dL Hct 47.3 (42-52) % Plt Count 254 (130-400) K/uL BMP 11/13/20 00:39 Sodium 139 Potassium 4.1 Chloride 105 Carbon Dioxide 26 BUN 17 Creatinine 1.00 Glucose 138 H Calcium 9.7 Liver Function 11/13/20 Range/Units 00:39 Total Bilirubin 0.5 (0.2-1) mg/dl AST 22 (15-37) U/L ALT 38 (12-78) U/L Alkaline Phosphatase 75 (45-117) U/L Albumin 4.0 (3.4-5.0) gm/dl Urine 11/13/20 Range/Units Unknown Urine Color Yellow Urine Appearance Clear (Clear) Urine pH 7.0 (4.5-7.5) Ur Specific [place] > 1.045 H (1.000-1.030) Urine Protein Negative (Negative) Urine Glucose (UA) Negative (Negative)
[2020-11-14] MEDS ORDERED: Nursing to Pharmacy Communication SCH (04:30)
[2020-11-14] MEDS: SODIUM CHLORIDE 0.9% 1000ML 1,000 ML IV SCH ×2 (05:55→20:12)
[2020-11-14 07:18] LABS: Basophils # (auto) 0.02 K/uL (0-0.2); Basophils % (auto) 0.3 %; Eosinophils # (auto) 0.13 K/uL (0-0.5); Eosinophils % (auto) 1.6 %; Hematocrit (blood only) 42.4 % (42-52); Hemoglobin 14.4 g/dL (14.0-18.0); Immature Granulocytes # (auto) 0.01 K/uL (0.00-0.02); Immature Granulocytes % (auto) 0.1 %; Lymphocytes # (auto) 2.29 K/uL (1.2-3.4); Lymphocytes % (auto) 28.6 %; Mean Corpuscular Hemoglobin 32.7 pg (25-34); Mean Corpuscular Volume 96.1 fL (80-100); Monocytes # (auto) 0.96 K/uL (0.11-0.59); Neutrophils # (auto) 4.59 K/uL (1.4-6.5); Neutrophils % (auto) 57.4 %; Platelet Count 245 K/uL (130-400); RDW Coefficient of Variation 13.5 % (11.5-14.5); RDW Standard Deviation 47.3 fL (36.4-46.3); Red Blood Count 4.41 M/uL (4.7-6.1)
--- NOTE | 2020-11-14 07:24 | Surgery Progress Note ---
Date of Service November 14, 2020 Assessment & Plan (1) SBO (small bowel obstruction): Patient here with SBO Started having + bowel function yesterday. An NGT clamp trial was performed and ultimately removed. Pt tolerated well Currently doing well with sips/ice. Continues to pass flatus and feels well without n/v and less abdominal pain Abdomen is soft and less distended than yesterday Will advance to clears for breakfast Awaiting KUB results, if okay can continue to advance diet as tolerates Encourage activity as tolerates Admission and Anticipated Discharge Date Admission Date: November 13, 2020 Supervising Physician Co-Signing Physician Notes Patient seen and examined, KUB and labs reviewed, agree with above. 75-year-old male admitted with partial small bowel obstruction and thickening and hyperemia of his distal small bowel. He is had a bowel movement and has been passing gas. He tolerated clear liquids today after his NG tube was removed yesterday evening. On exam he is afebrile stable vitals. He is less distended, his abdomen is nontender. Labs unremarkable. KUB with some distended bowel but air is in the colon. At this point we will advance him to a low fiber diet, and if he tolerates he may be discharged this evening or tomorrow. I would recommend outpatient follow-up with GI for colonoscopy in the future. Subjective Patient states he is feeling well. Tolerating sips/ice. Denies nausea/vomiting. Has some abdominal soreness, but states it is much better. Is passing flatus and had 2 BM's yesterday. Physical Exam Physical Exam: awake/alert Respiratory: normal respiratory effort Gastrointestinal (Abdomen): Percussion/Palpation: + abdomen tender (very mild generalized soreness to palpation) and abdomen soft Results & Data ([facility]) Vital Signs (Past 12 Hours) Vital Signs Temp Pulse Resp BP Pulse Ox 11/13/20 23:54 36.4 C L 76 18 138/88 94 PG Care Time/CCT Total # of Minutes Spent Total Time Spent with Patient: Total time spent is greater than 50% in coordination of care (as documented) at patient's floor/unit and/or counseling patient: Coding Level of Care Code 90056 Subseq Hosp Care Lvl 1 Diagnoses SBO (small bowel obstruction) K56.609
[2020-11-14 07:41] LABS: BUN Creatinine Ratio 15.5 (10-20); Calcium 8.6 mg/dl (8.5-10.1); Creatinine Clr Calc Pharmacy 70.7 ml/min; Est GFR (Non-African American) 62.1; Magnesium 2.1 mg/dl (1.8-2.4); Potassium 3.8 mmol/L (3.5-5.1)
--- NOTE | 2020-11-14 07:56 | XRay Report ---
KUB CLINICAL HISTORY: Small bowel obstruction. FINDINGS: 2 AP supine abdominal radiographs are correlated with abdominal CT dated 11/13/2020. There i s persistent gaseous distention of the proximal small bowel loops which measure up to 4.3 cm. Gas is present within the colon. No evidence of intraperitoneal free air is seen on these supine images. The re are bilateral renal calculi. Extensive postoperative change is noted in the lumbar spine. IMPRESSION: There is gaseous distention of the proximal small bowel loops indicating persistent small bowel obstruction. Electronically signed by: Jori Jeong M.D. 11/14/2020 7:55 AM
[2020-11-14] MEDS: MULTIVITAMIN TAB PO SCH (08:08)
[2020-11-14] MEDS: ENOXAPARIN INJ 40 MG/0.4 ML SYR SQ SCH (08:08)
[2020-11-14] MEDS: allopurinoL 300 MG TAB PO SCH (08:08)
[2020-11-14] MEDS: ROSUVASTATIN CALCIUM 10 MG TAB PO SCH (08:08)
[2020-11-14] MEDS: lisinopril 10 MG TAB PO SCH (08:08)
--- NOTE | 2020-11-14 14:25 | Hospitalist Progress Note ---
Date of Service November 14, 2020 Assessment & Plan (1) SBO (small bowel obstruction): Small bowel obstruction Remote H/O appendectomy -CT ABD:Findings are consistent with a small bowel obstruction. A transition point is identified involving small bowel loops in the central pelvis. There is a long segment of wall thickening and mucosal hyperemia involving the distal small bowel at and below the transition point. The obstruction is likely related to inflammation. Correlate clinically for evidence of a nonspecific enteritis. There is trace interloop fluid. No pneumatosis intestinalis or portal venous gas is identified. Moderate colonic diverticulosis without CT evidence of acute diverticulitis. Bilateral nephrolithiasis. Lucency around the interpedicular screws at S1 suggests loosening. -NG tube discontinued -Continue IV fluids -Encouraged to ambulate -Appreciate surgery input -Repeat KUB showed persistent small bowel obstruction -Started on clear liquid diet as per surgery -Surgery following Hypertension Stable Continue Lisinopril Hyperlipidemia on statin Prediabetes HbA1C: 6.23 Feb 2020 [employer] Past tobacco use As per records DVT x: SQ Lovenox Code Status Full code Admission and Anticipated Discharge Date Admission Date: November 13, 2020 Subjective Patient is seen and examined at bedside States feeling well today NG tube discontinued Tolerating clear liquid diet KUB this morning showed findings suggestive of persistent small bowel obstruction. Reports + flatus, BMs Denies chest pain, dyspnea, dizziness, nausea, vomiting, abdominal pain Review of Systems Review of Systems: All systems reviewed & are unremarkable except as noted in HPI & below Physical Exam Physical Exam: Physical Exam: Vitals signs as noted above General Appearance:Obese, no apparent distress Head: normocephalic, Atraumatic Eyes: normal inspection, EOMI Neck: supple, Trachea midline Respiratory/Chest: Normal breath sounds, CTA Cardiovascular: S1, S2, No murmur Abdomen/GI:Soft, Non tender, Decreased Bowel sounds Extremities/Musculoskelatal:normal inspection, no edema Neurologic/Psych:AAOX3, grossly no focal neurological deficits Skin: normal color, warm Results & Data Results & Data ([facility]) Vital Signs (Past 12 Hours) Vital Signs Temp Pulse Resp BP Pulse Ox 11/14/20 07:36 36.5 C 70 16 128/81 91 Laboratory Results Short CBC 11/14/20 Range/Units 07:00 WBC 8.00 (4.8-10.8) K/uL Hgb 14.4 (14.0-18.0) g/dL Hct 42.4 (42-52) % Plt Count 245 (130-400) K/uL BMP 11/14/20 07:00 Sodium 139 Potassium 3.8 Chloride 105 Carbon Dioxide 31 BUN 18 Creatinine 1.16 Glucose 100 H Calcium 8.6
[2020-11-15 06:54] LABS: Hematocrit (blood only) 41.3 % (42-52); Hemoglobin 13.9 g/dL (14.0-18.0); Mean Corpuscular Hemoglobin 32.3 pg (25-34); Mean Corpuscular Hgb Conc 33.7 g/dL (32-36); Mean Platelet Volume 9.1 fL (7.4-10.4); Platelet Count 225 K/uL (130-400); RDW Coefficient of Variation 13.3 % (11.5-14.5); RDW Standard Deviation 45.8 fL (36.4-46.3); White Blood Count 6.73 K/uL (4.8-10.8)
[2020-11-15 07:35] LABS: BUN Creatinine Ratio 14.8 (10-20); Creatinine Clr Calc Pharmacy 70.7 ml/min; Est GFR (Non-African American) 62.1; Potassium 3.8 mmol/L (3.5-5.1)
[2020-11-15] MEDS: ROSUVASTATIN CALCIUM 10 MG TAB PO SCH (09:02)
[2020-11-15] MEDS: lisinopril 10 MG TAB PO SCH (09:03)
[2020-11-15] MEDS: allopurinoL 300 MG TAB PO SCH (09:03)
[2020-11-15] MEDS: MULTIVITAMIN TAB PO SCH (09:03)
[2020-11-15] MEDS: ENOXAPARIN INJ 40 MG/0.4 ML SYR SQ SCH (09:04)
--- NOTE | 2020-11-15 09:08 | XRay Report ---
KUB HISTORY: Follow up study in a patient with small bowel obstruction SBO COMPARISON: KUB 11/14/2020, CT 11/13/2020 FINDINGS: Decreased gaseous distention of the small bowel with small bowel loops measuring up to appr oximately 3.9 cm transversely.. Air is also noted within the large bowel. Bilateral nephrolithiasis without ureteral calculi redemonstrated. No pneumoperitoneum or pneumatosis. Spinal fusion hardware i s redemonstrated. Lucency is redemonstrated surrounding the bilateral L3 screws suggestive of looseni ng. No fracture. IMPRESSION: 1. Decreased small bowel distention suggestive of resolving small bowel obstruction without pneumoper itoneum. 2. Bilateral nephrolithiasis. ACT 112: Negative or not required by law. The above report was generated using voice recognition software. It may contain grammatical, syntax o r spelling errors. Electronically signed by: Reginaldo Donis M.D. 11/15/2020 9:06 AM
[2020-11-15] MEDS: SODIUM CHLORIDE 0.9% 1000ML 1,000 ML IV SCH (10:06)
--- NOTE | 2020-11-15 10:40 | Hospitalist Progress Note ---
Date of Service November 15, 2020 Assessment & Plan (1) SBO (small bowel obstruction): Small bowel obstruction Remote H/O appendectomy -CT ABD:Findings are consistent with a small bowel obstruction. A transition point is identified involving small bowel loops in the central pelvis. There is a long segment of wall thickening and mucosal hyperemia involving the distal small bowel at and below the transition point. The obstruction is likely related to inflammation. Correlate clinically for evidence of a nonspecific enteritis. There is trace interloop fluid. No pneumatosis intestinalis or portal venous gas is identified. Moderate colonic diverticulosis without CT evidence of acute diverticulitis. Bilateral nephrolithiasis. Lucency around the interpedicular screws at S1 suggests loosening. 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 use As per records DVT x: SQ Lovenox Code Status Full code Disposition Plan to discharge home when stable Admission and Anticipated Discharge Date Admission Date: November 13, 2020 Subjective Patient is seen and examined at bedside Offers no complaints today States feeling well today Chest x-ray showed resolving small bowel obstruction and decreased bowel distention Denies nausea, vomiting, abdominal pain Also denies chest pain, dyspnea, dizziness Review of Systems Review of Systems: All systems reviewed & are unremarkable except as noted in HPI & below Physical Exam Physical Exam: Physical Exam: Vitals signs as noted above General Appearance:Obese, no apparent distress Head: normocephalic, Atraumatic Eyes: normal inspection, EOMI Neck: supple, Trachea midline Respiratory/Chest: Normal breath sounds, CTA Cardiovascular: S1, S2, No murmur Abdomen/GI:Soft, Non tender, Decreased Bowel sounds Extremities/Musculoskelatal:normal inspection, no edema Neurologic/Psych:AAOX3, grossly no focal neurological deficits Skin: normal color, warm Results & Data Results & Data ([facility]) Vital Signs (Past 12 Hours) Vital Signs Temp Pulse Resp BP BP Pulse Ox 11/15/20 09:02 151/81 H 11/15/20 07:05 36.4 C L 64 16 130/86 93 11/15/20 00:43 36.8 C 73 16 138/79 94 Laboratory Results Short CBC 11/15/20 Range/Units 06:19 WBC 6.73 (4.8-10.8) K/uL Hgb 13.9 L (14.0-18.0) g/dL Hct 41.3 L (42-52) % Plt Count 225 (130-400) K/uL BMP 11/15/20 06:19 Sodium 140 Potassium 3.8 Chloride 106 Carbon Dioxide 28 BUN 17 Creatinine 1.16 Glucose 90 Calcium 9.0
--- NOTE | 2020-11-15 11:10 | Surgery Progress Note ---
Date of Service November 15, 2020 Assessment & Plan (1) SBO (small bowel obstruction): Patient is feeling well. Denies abdominal pain/n/v Is passing flatus/BM's Tolerating a low fiber diet KUB this AM showed improvement We are okay with discharge to home today Asked patient to continue a low fiber diet until bowels normalize Would recommend a colonoscopy as an outpatient Pt seen/examined with Dr. Scott Admission and Anticipated Discharge Date Admission Date: November 13, 2020 Supervising Physician Co-Signing Physician Notes Patient seen and examined, labs image reviewed, agree with above. 75-year-old male with resolved small bowel obstruction. Tolerating regular diet and is had another bowel movement. On exam he is afebrile stable vitals, abdomen soft, nondistended, nontender. KUB reviewed with air in the colon and less distended bowel. His bowel obstruction is resolved, he may be discharged to home on low fiber diet. Recommend follow-up with GI for colonoscopy. Subjective Patient states he is feeling well. Tolerating a low fiber diet. Denies n/v/abdominal pain. Is passing flatus and BM's. Physical Exam Physical Exam: awake/alert Gastrointestinal (Abdomen): Inspection/Auscultation: abdomen not distended Percussion/Palpation: abdomen soft; abdomen nontender Results & Data ([facility]) Vital Signs (Past 12 Hours) Vital Signs Temp Pulse Resp BP BP Pulse Ox 11/15/20 09:02 151/81 H 11/15/20 07:05 36.4 C L 64 16 130/86 93 11/15/20 00:43 36.8 C 73 16 138/79 94 PG Care Time/CCT Total # of Minutes Spent Total Time Spent with Patient: Total time spent is greater than 50% in coordination of care (as documented) at patient's floor/unit and/or counseling patient: Coding Level of Care Code 56892 Subseq Hosp Care Lvl 1 Diagnoses SBO (small bowel obstruction) K56.609
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
== END 2020-11-15 12:33 | disposition home or self-care (01) | DRG 389 ==
LOC: ED 00:18 → 3N 04:52

== ENCOUNTER 2024-03-11 10:48 | Inpatient (IN) ==
--- NOTE | 2024-03-11 10:59 | Emergency Department Note ---
Impression & Plan Acute UTI (urinary tract infection), Ureteritis, Sepsis ED Provider Note HISTORY OF PRESENT ILLNESS: Patient is a 78-year-old male presenting with dysuria, weakness, vomiting and abdominal pain. Patient reports he started having burning when he pees 5 days ago. Reports this continued throughout the week and he has had urinary frequency. He states that "it feels like fire when I pee." He states that he started to having some generalized weakness starting 3 days ago. Reports that he is also started vomiting in the last 48 hours. He states he had 2 bites of scrambled eggs this morning and then proceeded to vomited up. He states that his dog jumped on his abdomen today and he "did not realize I had belly pain until then." He denies any measured fevers at home, but does report that he has had some chills and sweats. No reported recent sick contact exposure or recent travel. ROS: as above PHYSICAL EXAM: Constitutional: Patient appears in no acute distress. HENT: Head: Normocephalic and atraumatic. Eyes: EOMI, PERRL Mouth/Throat: Mucous membranes moist. Neck: Trachea midline. Neck supple. Cardiovascular: Tachycardia with regular rhythm. No murmurs, rubs or gallops. Intact distal pulses. Pulmonary/Chest: No respiratory distress. Breath sounds clear and equal bilaterally. No wheezes or rales. Abdominal: Abdomen soft, no tenderness, rebound or guarding. Musculoskeletal: No edema, tenderness or deformity noted. Skin: Warm and dry. No rash, erythema, pallor or cyanosis Psychiatric: Appropriate mood and affect for situation. Neurological: Alert and keenly responsive. CN II-XII grossly intact, moving all extremities equally and fully. MDM: - Vitals signs showed tachycardia - History obtained via patient. History as above. - Chronic conditions affecting care: none - Differential diagnoses include, but are not limited to: UTI; ureteral stone; sepsis; BPH; bladder outlet obstruction - Order placed for continuous cardiac monitoring. At this time, monitor showed rate of 73 bpm with normal sinus rhythm, per my interpretation. - External medical records reviewed. Discharge summary dated 11/15/2020 was reviewed. Patient was admitted at that time for small bowel obstruction - Laboratory workup interpreted by myself showed leukocytosis (WBC 17.40) with left shift; slight hyponatremia (Na 133); normal procalcitonin; elevated anion gap (12); normal lactate - UA showed evidence of infection. - Blood cultures obtained. - Patient given 2L NS in ER. Given 2g IV rocephin for antibiotic coverage. Patient's fluid resuscitation based on ideal body weight is 2018.1 mL. - CT abdomen/pelvis with IV contrast showed urothelial thickening of R renal collecting system and ureter suggestive of infectious pyelitis/ureteritis and 9 mm calculus in L kidney causing obstruction - Discussed case with urologist configurator, Dr. Parker, at 1300. Recommends antibiotics. If patient worsens, a stent can possibly be placed. - Discussion was had with case management associate about patient's case and need for admission - Hospitalist consulted for admission - [facility] ASSESSMENT AND PLAN: Diagnosis: acute UTI; ureteritis; sepsis Plan: admit Past Med/Surg History Problem List (Updated 03/11/24 @ 13:14 by Nargis Cullen MD) Sepsis (Acute) Ureteritis (Acute) Acute UTI (urinary tract infection) (Acute) SBO (small bowel obstruction) (Acute) Medical History Dyslipidemia Gout Hypertension Surgical History History of appendectomy History of back surgery Social History Smoking Status: Never smoker Hx Alcohol Use: No Hx Substance Use: No Preferred Language: Polish Communication Ability: Effective Procedure Rn Required: No Beliefs That Will Affect Care: None marital status: Current Living Situation: Spouse Feels Safe at Home: Yes Assistive Devices: Denture - Upper, Denture - Lower and Glasses Allergies Allergies Allergy/AdvReac Type Severity Reaction Status Date / Time No Known Allergies Allergy Unverified 11/13/20 01:19 Home Meds Home Medications Medication Instructions Recorded Confirmed allopurinol 300 mg tablet 300 mg PO QAM 11/13/20 03/11/24 lisinopril 10 mg tablet 10 mg PO QAM 11/13/20 03/11/24 multivitamin 1 tab PO DAILY 11/13/20 03/11/24 rosuvastatin 10 mg tablet 10 mg PO DAILY 11/13/20 03/11/24 tamsulosin 0.4 mg capsule 0.4 mg PO DAILY 03/11/24 03/11/24 Results & Data (ED) Vital Signs Vital Signs - 24 hr 03/11/24 10:54 03/11/24 11:00 03/11/24 11:16 Temperature 37.3 C Temperature Source Oral Pulse Rate 109 H 110 H 83 Pulse Rhythm Irregular Respiratory Rate 22 20 Blood Pressure 145/92 H Blood Pressure Mean 109 Blood Pressure Position Sitting Pulse Oximetry 92 98 Oxygen Delivery Method Room Air Room Air Sepsis Recent Fever Within 48 Hours No Sepsis New/Unexplained Change in Mental Status No Sepsis Action Taken by Nursing No Action Required 03/11/24 12:13 03/11/24 12:13 Temperature Temperature Source Pulse Rate 78 Pulse Rhythm Respiratory Rate 14 Blood Pressure 143/72 H Blood Pressure Mean 92 Blood Pressure Position Pulse Oximetry 94 Oxygen Delivery Method Sepsis Recent Fever Within 48 Hours Sepsis New/Unexplained Change in Mental Status Sepsis Action Taken by Nursing Laboratory Data 03/11/24 11:00 03/11/24 11:00 Lab Results 03/11/24 03/11/24 Range/Units 11:00 11:30 WBC 17.40 H (4.8-10.8) K/ul RBC 4.66 L (4.70-6.10) M/uL Hgb 14.9 (14.0-18.0) g/dl Hct 43.6 (42.0-52.0) % MCV 93.6 (80.0-100.0) fL MCH 32.0 (25.0-34.0) pg MCHC 34.2 (32.0-36.0) g/dL RDW Std Deviation 46.1 (36.4-46.3) fL RDW Coeff of Samara 13.6 (11.5-14.5) % Plt Count 208 (130-400) K/uL MPV 9.2 L (9.4-12.4) fL Immature Gran % (Auto) 0.3 % Neut % (Auto) 77.6 % Lymph % (Auto) 11.5 % Peach % (Auto) 10.4 % Eos % (Auto) 0.0 % Baso % (Auto) 0.2 % Neut # (Auto) 13.50 H (1.40-6.50) K/uL Lymph # (Auto) 2.00 (1.20-3.40) K/uL Peach # (Auto) 1.81 H (0.11-0.59) K/uL Eos # (Auto) 0.00 (0.00-0.50) K/uL Baso # (Auto) 0.03 (0.00-0.20) K/uL Immature Gran # (Auto) 0.06 (0.01-0.20) K/uL Sodium 133 L (136-145) mmol/L Potassium 4.1 (3.5-5.1) mmol/L Chloride 98 (98-107) mmol/L Carbon Dioxide 23 (21-32) mmol/L Anion Gap 12 H (3-11) BUN 23 (6-23) mg/dl Creatinine 1.16 (0.6-1.4) mg/dl Est Cr Clr Drug Dosing 63.8 ml/min Est GFR ( Amer) 70.5 ml/min Est GFR (Non-Af Amer) 60.8 ml/min BUN/Creatinine Ratio 19.8 (10-20) Glucose 137 H (70-99(Fasting)) mg/dl Lactate 2.0 (0.4-2.0) mmol/L Calcium 9.7 (8.6-10.3) mg/dl Magnesium 1.7 Cancelled (1.7-2.4) mg/dl Total Bilirubin 0.7 (0.2-1.0) mg/dl AST 16 (13-39) U/L ALT 17 (7-52) U/L Alkaline Phosphatase 59 (34-104) U/L Total Protein 8.0 (6.0-8.3) gm/dl Albumin 4.2 (3.4-5.0) gm/dl Globulin 3.8 (2.5-4.0) gm/dl Albumin/Globulin Ratio 1.1 (0.9-2) Procalcitonin 0.49 (0-0.5) ng/ml Urine Color Dark Yellow Urine Appearance Cloudy A (Clear) Urine pH >= 9.0 H (4.5-7.5) Ur Specific [place] 1.015 (1.000-1.030) Urine Protein 2+ H (Negative) Urine Glucose (UA) Negative (Negative) Urine Ketones Negative (Negative) Urine Blood 2+ H (Negative) Urine Nitrite Negative (Negative) Urine Bilirubin Negative (Negative) Urine Urobilinogen Negative (Negative) Ur Leukocyte Esterase 3+ H (Negative) Urine WBC (Auto) >50 H (0-5) /hpf Urine RBC (Auto) 3-5 H (0-2) /hpf U Hyaline Cast (Auto) 11-20 H (0-2) /lpf U Epithel Cells (Auto) 0-2 (0-2) /hpf Urine Bacteria (Auto) 4+ H (None Seen) Administered Medications Discontinued Medications Sodium Chloride (Nss) 1,000 mls @ 999 mls/hr IV .Q1H1M ONE Stop: 03/11/24 12:08 Last Infusion: 03/11/24 12:15 Dose: Infused Documented By: Admin: 03/11/24 11:14 Dose: 999 mls/hr Documented By: TAYLOR Sodium Chloride (Nss) 1,000 mls @ 999 mls/hr IV .Q1H1M ONE Stop: 03/11/24 12:30 Last Admin: 03/11/24 12:43 Dose: 999 mls/hr Documented By: TAYLOR Ceftriaxone Sodium (Rocephin) 2,000 mg in 50 mls @ 100 mls/hr IV NOW STA Stop: 03/11/24 11:59 Last Infusion: 03/11/24 12:14 Dose: Infused Documented By: Admin: 03/11/24 11:44 Dose: 100 mls/hr Documented By: TAYLOR Ioversol (Optiray 320 100ml) 90 ml IV ONCE ONE Stop: 03/11/24 12:09 Last Admin: 03/11/24 12:08 Dose: 90 ml Documented By: VALENTINO Imaging Data Radiologist's Impression: Abdomen/Pelvis CT 03/11/24 11:[address] WITH IV CONTRAST CT DOSE: 1791.24 mGy.cm HISTORY: Acute nausea with vomiting and dysuria vomiting; dysuria; fevers TECHNIQUE: Multiaxial CT images of the abdomen and pelvis were performed following the IV administration of 90 cc of Optiray, A dose lowering technique was utilized adhering to the principles of ALARA. COMPARISON STUDY: 11/13/2020 FINDINGS: Cardiomegaly with moderate coronary artery calcifications. Calcified mediastinal and hilar lymph nodes. Mild cardiomegaly. Mild dependent subsegmental bibasilar atelectasis. No free air. Calcified granulomata of the spleen. Unremarkable pancreas, gallbladder and adrenal glands. Unremarkable liver. Subcentimeter hypodense focus of the left hepatic lobe on image 20 series 2. Patency of the hepatic and portal veins. There are numerous nonobstructing bilateral renal calculi measuring up to approximately 6 mm on the right and 8 mm on the left. There is moderate dilation of a superior pole calyx on the left secondary to an obstructing 9 mm calculus on image 165. Mild urothelial thickening of the right renal collecting system. Urine bladder wall thickening with partial distention. Perivesicular inflammatory stranding. Prostatomegaly. Small fat filled left inguinal hernia. Atherosclerosis of the aorta. No lymphadenopathy. Colonic diverticulosis. No bowel reduction or bowel wall thickening. Moderate fecal retention. Appendectomy. Unremarkable soft tissues. No acute fracture. Lumbar sacral fusion hardware with evidence of hardware loosening involving the S1 screws again noted. The L2 screws extending to the superior endplate. Progressively worsened severe intervertebral disc space narrowing with endplate irregularity at L1-L2. IMPRESSION: 1. 9 mm calculus of the interpolar left kidney cause obstruction of a superior pole calyx. 2. Bilateral nephrolithiasis. 3. Prostatomegaly with chronic outlet obstruction. 4. Urothelial thickening of the right renal collecting system and ureter suggestive of infectious pyelitis/ureteritis. 5. No bowel obstruction. 6. Additional findings as above. ACT 112: Negative or not required by law. The above report was generated using voice recognition software. It may contain grammatical, syntax or spelling errors. Electronically signed by: Genaro Donis M.D. 03/11/2024 12:45 PM Discharge Plan Visit Data Chief Complaint: Urinary Symptoms Stated Complaint: PAIN WITH URINATION, FREQUENCY, WEAKNESS ED Provider: Nargis Cullen Discharge Problem: Acute UTI (urinary tract infection), Ureteritis, Sepsis Forms Stand Alone Forms: My [employer] Prescriptions Prescriptions: No Action lisinopril 10 mg tablet 10 mg PO QAM allopurinol 300 mg tablet 300 mg PO QAM rosuvastatin 10 mg tablet 10 mg PO DAILY multivitamin Tablet 1 tab PO DAILY tamsulosin 0.4 mg capsule 0.4 mg PO DAILY Referrals Referrals: Melquiades Li PA-C [Outside Practitioners] -
[2024-03-11] MEDS: SODIUM CHLORIDE 0.9% 1,000 ML IV ONE ×2 (11:14→12:43)
[2024-03-11 11:23] LABS: Basophils # (auto) 0.03 K/uL (0.00-0.20); Basophils % (auto) 0.2 %; Hematocrit (blood only) 43.6 % (42.0-52.0); Hemoglobin 14.9 g/dl (14.0-18.0); Immature Granulocytes # (auto) 0.06 K/uL (0.01-0.20); Immature Granulocytes % (auto) 0.3 %; Lymphocytes % (auto) 11.5 %; Mean Corpuscular Hgb Conc 34.2 g/dL (32.0-36.0); Mean Corpuscular Volume 93.6 fL (80.0-100.0); Mean Platelet Volume 9.2 fL (9.4-12.4); Monocytes # (auto) 1.81 K/uL (0.11-0.59); Monocytes % (auto) 10.4 %; Neutrophils % (auto) 77.6 %; Platelet Count 208 K/uL (130-400); RDW Coefficient of Variation 13.6 % (11.5-14.5); RDW Standard Deviation 46.1 fL (36.4-46.3); Red Blood Count 4.66 M/uL (4.70-6.10)
[2024-03-11 11:28] LABS: Appearance Urine Cloudy (Clear); Bacteria Urine Automated 4+ (None Seen); Bilirubin Urine Negative (Negative); Blood Urine 2+ (Negative); Color Urine Dark Yellow; Epithelial Cell Urine Auto 0-2 /hpf (0-2); Glucose Urine UA Negative (Negative); Ketones Urine Negative (Negative); Leukocyte Esterase Urine 3+ (Negative); Nitrite Urine Negative (Negative); Protein Urine 2+ (Negative); Specific Gravity Urine 1.015 (1.000-1.030); Urobilinogen Urine Negative (Negative); WBC Urine Automated >50 /hpf (0-5); pH Urine >= 9.0 (4.5-7.5)
[2024-03-11 11:37] LABS: Albumin Globulin Ratio 1.1 (0.9-2); Albumin Level 4.2 gm/dl (3.4-5.0); BUN Creatinine Ratio 19.8 (10-20); Bilirubin,Total 0.7 mg/dl (0.2-1.0); Calcium 9.7 mg/dl (8.6-10.3); Creatinine Clr Calc Pharmacy 63.8 ml/min; Est GFR (African American) 70.5 ml/min; Est GFR (Non-African American) 60.8 ml/min; Globulin 3.8 gm/dl (2.5-4.0); Potassium 4.1 mmol/L (3.5-5.1)
[2024-03-11] MEDS: cefTRIAXone SODIUM 2,000 MG/50 ML BAG IV STA (11:44)
[2024-03-11 11:51] LABS: Magnesium 1.7 mg/dl (1.7-2.4)
[2024-03-11] MEDS: OPTIRAY 320 100ml IV ONE (12:08)
--- NOTE | 2024-03-11 12:48 | CT Scan Report ---
ABDOMEN AND PELVIS CT WITH IV CONTRAST CT DOSE: 1791.24 mGy.cm HISTORY: Acute nausea with vomiting and dysuria vomiting; dysuria; fevers TECHNIQUE: Multiaxial CT images of the abdomen and pelvis were performed following the IV administrat ion of 90 cc of Optiray, A dose lowering technique was utilized adhering to the principles of ALARA. COMPARISON STUDY: 11/13/2020 FINDINGS: Cardiomegaly with moderate coronary artery calcifications. Calcified mediastinal and hilar lymph nodes. Mild cardiomegaly. Mild dependent subsegmental bibasilar atelectasis. No free air. Calci fied granulomata of the spleen. Unremarkable pancreas, gallbladder and adrenal glands. Unremarkable l iver. Subcentimeter hypodense focus of the left hepatic lobe on image 20 series 2. Patency of the hep atic and portal veins. There are numerous nonobstructing bilateral renal calculi measuring up to approximately 6 mm on the r ight and 8 mm on the left. There is moderate dilation of a superior pole calyx on the left secondary to an obstructing 9 mm calculus on image 165. Mild urothelial thickening of the right renal collectin g system. Urine bladder wall thickening with partial distention. Perivesicular inflammatory stranding . Prostatomegaly. Small fat filled left inguinal hernia. Atherosclerosis of the aorta. No lymphadenop athy. Colonic diverticulosis. No bowel reduction or bowel wall thickening. Moderate fecal retention. Append ectomy. Unremarkable soft tissues. No acute fracture. Lumbar sacral fusion hardware with evidence of hardware loosening involving the S1 screws again noted. The L2 screws extending to the superior endpl ate. Progressively worsened severe intervertebral disc space narrowing with endplate irregularity at L1-L2. IMPRESSION: 1. 9 mm calculus of the interpolar left kidney cause obstruction of a superior pole calyx. 2. Bilateral nephrolithiasis. 3. Prostatomegaly with chronic outlet obstruction. 4. Urothelial thickening of the right renal collecting system and ureter suggestive of infectious randi litis/ureteritis. 5. No bowel obstruction. 6. Additional findings as above. ACT 112: Negative or not required by law. The above report was generated using voice recognition software. It may contain grammatical, syntax o r spelling errors. Electronically signed by: Genaro Donis M.D. 03/11/2024 12:45 PM
--- NOTE | 2024-03-11 13:33 | Urology Consultation ---
Date of Consultation March 11, 2024 Assessment & Plan (1) Hydronephrosis, left: (2) Multiple renal calculi: (3) Acute UTI (urinary tract infection): Plan 78-year-old male admitted with nausea and vomiting. Labs showed a leukocytosis and a grossly positive urinalysis. He has nonobstructing stones and possibly some left upper pole obstruction but is asymptomatic from a flank pain standpoint Patient has no flank pain so I do not think he necessarily requires a stent placement, at least not acutely. His creatinine is stable. Comparison to a CT scan in 2020 shows that the stone was in the same position with some apparent upper pole hydronephrosis. He is well-appearing on physical exam and his tachycardia resolved with fluids. I discussed that he may require a stent if leukocytosis doesnot improve or he became febrile but at this point I think we can monitor conservatively Continue antibiotics, follow-up cultures and trend labs Bladder scan patient. If bladder scan after void is greater than 400 cc, recommend Barlow catheter placement as I suspect his UTI is due to obstruction and incomplete emptying Patient will need outpatient workup for UTI and discussion of possible stone treatment depending on his wishes. Urology will reevaluate tomorrow History of Present Illness History of Present Illness 78-year-old male admitted this morning for nausea and vomiting. Afebrile, in itially tachycardic but now nontachycardic. Slightly hypertensive. Labs showed a leukocytosis of 17.4, a creatinine of 1.16 which appears to be his baseline and a grossly positive urinalysis. He was given Rocephin. A CT scan was performed which I independently reviewed. He has bilateral stones in his kidneys and what appears to be some left upper pole hydronephrosis from a mid pole stone. There were no ureteral calculi. He does have somewhat thickened bladder with mild prostatic enlargement. On comparison from his CT scan in 2020, this mild left upper pole hydronephrosis appears stable. Patient reports developing dysuria 2 days ago and worsening nausea and vomiting. He denies any right flank pain. He does report a history of incomplete emptying and is on Flomax. He has a distant history of stone treatment in [place] 30 years ago. Allergies Allergy/AdvReac Type Severity Reaction Status Date / Time No Known Allergies Allergy Unverified 11/13/20 01:19 Home Medications Medication Instructions Recorded Confirmed Type allopurinol 300 mg tablet 300 mg PO QAM 11/13/20 03/11/24 History lisinopril 10 mg tablet 10 mg PO QAM 11/13/20 03/11/24 History multivitamin 1 tab PO DAILY 11/13/20 03/11/24 History rosuvastatin 10 mg tablet 10 mg PO DAILY 11/13/20 03/11/24 History tamsulosin 0.4 mg capsule 0.4 mg PO DAILY 03/11/24 03/11/24 History Patient History Medical History BPH with obstruction/lower urinary tract symptoms Hypertension Gout Dyslipidemia Surgical History History of back surgery History of appendectomy Social History Smoking Status: Never smoker Hx Alcohol Use: No Hx Substance Use: No Preferred Language: Yoruba Communication Ability: Effective Loader Technician Required: No Beliefs That Will Affect Care: None marital status: Current Living Situation: Spouse Feels Safe at Home: Yes Assistive Devices: Denture - Upper, Denture - Lower and Glasses Physical Exam Physical Exam: General: Alert and oriented, no acute distress HEENT: Normocephalic, mucous membranes moist Pulmonary: Nonlabored respirations Abdomen: Nondistended Extremities: Moves all 4 spontaneously Neuro: No gross deficits Skin: Warm, dry, no rashes noted Results & Data Vital Signs (Past 12 Hours) Vital Signs Temp Pulse Resp BP Pulse Ox O2 Del Method 03/11/24 12:13 78 14 03/11/24 12:13 143/72 H 94 03/11/24 11:16 83 03/11/24 11:00 110 H 20 98 Room Air 03/11/24 10:54 37.3 C 109 H 22 145/92 H 92 Room Air PG Care Time/CCT Total # of Minutes Spent Total Time Spent with Patient: Total time spent is greater than 50% in coordination of care (as documented) at patient's floor/unit and/or counseling patient: Coding Level of Care Code 28925 INT INP/OBS CARE 2/55MIN Diagnoses Hydronephrosis, left N13.30 Multiple renal calculi N20.0 Acute UTI (urinary tract infection) N39.0
--- NOTE | 2024-03-11 13:58 | History & Physical Report ---
Date of Service March 11, 2024 Assessment & Plan (1) Sepsis: (2) Prostatitis, acute: (3) Acute UTI (urinary tract infection): (4) Ureteritis: (5) Bladder outlet obstruction: (6) Multiple renal calculi: (7) Hydronephrosis, left: Plan Patient 78-year-old gentleman presents to the ED with urinary complaints. Workup in the emergency room consistent with sepsis due to urinary tract infection most likely due to bladder outlet obstruction from BPH and possible subsequent prostatitis. Patient has also multiple renal calculi that may be contributing to his infection as well. At this point he is significantly ill with evidence of sepsis requires hospital level care including IV hydration, IV medications, monitoring of laboratory studies and specialty consultation Admit to the [facility] unit IV antibiotics to cover complicated UTI Increase patient's Flomax to 0.8 mg Add Proscar 5 mg for his BPH Consult urology for his multiple renal calculi, left calyx is dilated from obstructing stone which may need intervention surgically at some point Continue other home medications as ordered Monitor blood cultures and urine culture Monitor electrolytes and renal function Patient is having significant obstructive symptoms and suspect significant amounts of urinary retention will place Barlow catheter while treating infection and increasing his medications for his enlarged prostate recommend voiding trial prior to discharge and family at bedside updated of the plan of care and agreeable CODE STATUS discussed, full code History of Present Illness Chief Complaint: Dysuria, fever, nausea, vomiting Primary Care Provider: Diana Davis PA-C Patient is a 78-year-old gentleman with history of BPH. Presents to the emergency room today with about 5 days of significant dysuria. Over the last 24 to 48 hours he also started to have some chills and some nausea and had an episode of emesis yesterday. Was getting weaker and feeling more ill in general. He was encouraged to go to the emergency room today by his daughters. In the emergency room was noted to have significantly abnormal urinalysis. CT i maging of the abdomen pelvis is consistent with UTI enlarged prostate possible prostatitis is multiple renal calculi. ED provider did contact urology from the ED with patient's presentation who stated that there was no urgent need for surgical intervention and recommended medical management of the infection. Patient was referred to our service for further care. Time my evaluation patient seems to be somewhat improved. Does admit to some suprapubic pain and tenderness. States that he had severe dysuria over this week. He states the other night he woke up 22 times to urinate within about 6 hours. He did admit to some chills and felt hot but did not take his temperature to be sure if he had a fever. Does admit to some nausea. He states he has had normal bowel movements. States he has not been able to really eat much at all but was able to take some liquids. He denies any chest pain or shortness of breath. No new swelling in his hands arms legs or feet. Allergies Allergy/AdvReac Type Severity Reaction Status Date / Time No Known Allergies Allergy Unverified 11/13/20 01:19 Home Medications Medication Instructions Recorded Confirmed Type allopurinol 300 mg tablet 300 mg PO QAM 11/13/20 03/11/24 History lisinopril 10 mg tablet 10 mg PO QAM 11/13/20 03/11/24 History multivitamin 1 tab PO DAILY 11/13/20 03/11/24 History rosuvastatin 10 mg tablet 10 mg PO DAILY 11/13/20 03/11/24 History tamsulosin 0.4 mg capsule 0.4 mg PO DAILY 03/11/24 03/11/24 History Past Med/Surg History Problem List Hydronephrosis, left Multiple renal calculi Bladder outlet obstruction Prostatitis, acute Sepsis (Acute) Ureteritis (Acute) Acute UTI (urinary tract infection) (Acute) Medical History BPH with obstruction/lower urinary tract symptoms Hypertension Gout Dyslipidemia Surgical History History of back surgery History of appendectomy Social History Smoking Status: Never smoker Hx Alcohol Use: No Hx Substance Use: No Preferred Language: Nepalese Communication Ability: Effective Auto Parts Clerk Required: No Beliefs That Will Affect Care: None marital status: Current Living Situation: Spouse Feels Safe at Home: Yes Assistive Devices: Denture - Upper, Denture - Lower and Glasses Review of Systems Review of Systems: Pertinent positive and negative review of systems as mentioned in the HPI Physical Exam Physical Exam: Constitutional: Alert, ill in appearance, nontoxic HEENT: Mucous membranes moist. Sclera clear Neck: Soft, no adenopathy Lungs: Clear to auscultation, decreased, no wheezes rales or rhonchi CV: S1-S2, regular Abdomen: Soft, suprapubic tenderness, mild guarding, no rigidity nondistended Extremities: No significant edema Musculoskeletal: No significant joint tenderness Neuro: No focal deficits Psych: Cooperative, normal mood Results & Data Results & Data Vital Signs (Past 12 Hours) Vital Signs Temp Pulse Resp BP Pulse Ox O2 Del Method 03/11/24 12:13 78 14 03/11/24 12:13 143/72 H 94 03/11/24 11:16 83 03/11/24 11:00 110 H 20 98 Room Air 03/11/24 10:54 37.3 C 109 H 22 145/92 H 92 Room Air Diagnostic Findings Reviewed imaging, laboratory and diagnostic studies. Pertinent findings as below. Reviewed CT report Urinalysis consistent with UTI WBCs 17.4, hemoglobin 14.9 Nonfasting glucose 137 Code Status & VTE Plan VTE Prophylaxis Plan VTE Prophylaxis will be ordered: Yes
[2024-03-11] MEDS ORDERED: MELATONIN 3 MG TAB PO PRN (15:20)
[2024-03-11] MEDS ORDERED: ALUMINUM/MAGNESIUM SUSP 30 ML UDC PO PRN (15:20)
[2024-03-11] MEDS ORDERED: ONDANSETRON INJ 2 MG/ML 2 ML VIAL IV PRN (15:20)
[2024-03-11] MEDS: SODIUM CHLORIDE 0.9% 1,000 ML IV SCH (16:14)
[2024-03-11] MEDS: FINASTERIDE 5 MG TAB PO SCH (16:15)
[2024-03-11] MEDS: ENOXAPARIN INJ 40 MG/0.4 ML SYR SQ SCH (16:24)
[2024-03-11] MEDS: ACETAMINOPHEN 325 MG TAB PO PRN (17:38)
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
--- OUTSIDE RECORDS SUMMARY | 2024-03-12 02:47 | External Medical Summary | Summary of Care ---
Author Name Unknown Organization [facility] Address [address] [place] [place] [address] Phone [phone] Care Team Providers Care Ware Finisher Name Role Phone Diana Davis PA-C Primary Care Provider +1- [phone] Reason for Visit * Reason Onset Date Comments Health Maintenance 11/01/2023 Encounter Details Date Type Department Care Team (Late st Contact Info) Description 11/01/2023 Telephone [place] [address] [address] [place], [place] [phone] Diana Davis PA-C [facility]2 [facility] [address] [place] [address] [phone] Health Maintenance Allergies No known active allergiesdocumented as of this encounter (statuses as of 11/01/2023) Medications Medication Sig Dispensed Refills Start Date End Date Status MULTIVITAMINS PO CAPS Take by mouth. 0 Active Ibuprofen 800 MG Oral Tablet (Motrin)Indications: [...] THE MORNING 90 Tablet 1 2023 Active Tamsulosin HCl 0.4 MG Oral Capsule (Flomax)Indications: Renal colic Take 1 capsule by mouth once daily 90 Capsule 3 10/13/2023 Active documented as of this encounter (statuses as of 11/01/2023) Active Problems Problem Noted Date Diagnosed Date Type 2 diabetes, HbA1C goal < 8% 09/15/2023 BPH with obstruction/lower urinary tract symptom s 09/15/2022 Kidney stones 09/15/2022 Severe obesity with body mas s index (BMI) of 35.0 to 39.9 with serious comorbidity 09/15/2022 HTN, goal below 140/90 11/11/2015 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 05/13/2015 Hyperlipidemia with target LDL less than 100 Overview: ICD-10 update of inactive term Chronic gouty arthropathy 05/13/2015 documented as of this encounter (statuses as of 11/01/2023) Resolved Problems Problem Noted Date Diagnosed Date Resolved Date Prediabetes 12/07/2017 10/07/2023 Overview: Per Prediabetes protocol #1 Gout 11/11/2015 11/11/2015 HTN, goal below 130/80 [...] as of this encounter (statuses as of 11/01/2023) Immunizations Name Administration Dates Next Due COVID-19 mRNA, LNP-s, No Pre serve, 2-Dose Series (Pfizer) 08/13/2021,02/04/2021,01/10/2021 Pneumococcal Conjugate Vacc, 13 Valent (Prevnar) 07/22/2016 Pneumococcal Polysaccharide PPV23 (Pneumovax) 07/01/2016,05/13/2015 Seasonal Influenza, PF, 6 M & above, IM , (FluLaval or Fluzone) 08/10/2020,07/06/2018,08/03/2017 Seasonal Influenza, Quadriva lent Hd (Fluzone [...] on file documented as of this encounter Miscellaneous Notes * Telephone Encounter - Ama Rose LPN - 11/01/2023 11:01 AM EST Care Gaps Comprehensive Care Outreach Last Office/Telemedicine Visit: 09/15/2023 (in office), Visit date not found (telemedicine) Next Office Visit: 09/18/2024 Hemoglobin AIC Results: Lab Results Component Value Date/Time HEMOGLOBIN A1C - [facility] 6.5 (H) 09/08/2023 07:37 AM HEMOGLOBIN A1C - [facility] 6.3 (H) 09/15/2022 08:00 AM HEMOGLOBIN A1C - [facility] 6.2 (H) 08/29/2021 08:56 AM HEMOGLOBIN A1C - [facility] 6.1 (H) 02/23/2020 08:04 AM HEMOGLOBIN A1C - [facility] 6.1 (H) 08/26/2019 07:24 AM HEMOGLOBIN A1C - [facility] 6.0 (H) 08/04/2018 08:50 AM Reviewed Health Maintenance below: Health Maintenance Topic Date Due Diabetic Eye Exam Never done Albumin/Creatinine Ratio 09/08/2024 GFR 09/08/2024 Diabetic Foot Exam 09/15/2024 Care Gap Outreach Action Taken: Left message documented in this encounter Plan of Treatment Upcoming Encounters Date Type Department Care Team (Late st Contact Info) Description 08/28/2024 8:00 AM EST Nurse Only Ancillary, [place] [address] [place], [place] [address] [address] [place], Nurse Annual Wellness [facility] [facility] [place] [address] 09/18/2024 8:00 AM EST Office Visit Family Practice, [place] [address] [facility] [place] [address] Diana Davis PA-C [address] [facility] [address] [place] [address] Scheduled Procedures Name Priority Associated Diagnoses Date/Ti me COLONOSCOPY FLEXIBLE PROXIMA L DIAGNOSTIC Recall Encounter for screening colonoscopy Health Maintenance Due Date Last Done Comments [...] Completed 07/22/2016, 07/01/2016, 05/13/2015 Colonoscopy Discontinued 11/25/2020, 02/0 10/2020, 12/13/2012, Additional history exists Colorectal Cancer [...] this encounter Medical Devices Implanted Type Area Pack Puller Device Identifier Shelf Expiration Date Model / Serial / Lot Lens Intraoc 20.0 - [id number] - [id number] Implanted:Qty: 1 on 11/18/2021 by FabianaLeandro dorsey MD at OR [facility] Left: Eye BAUSCH & LOMB 05/24/2026 [id number] / [id number] / [id number] Lens Intraoc 19.5 - [id number] - [id number] Implanted:Qty: 1 on 12/02/2021 by Leandro Jung MD at OR [facility] Right: Eye BAUSCH & LOMB 08/24/2026 [id number] / [id number] / documented as of this encounter Care Teams Ware Finisher Relationship Specialty Start Date End Date Diana Davis PA-C [address] [facility] [address] [facility] [place] [address] PCP - General Physician Hotel Sales Manager 09/15/22 documented as of this encounter
--- OUTSIDE RECORDS SUMMARY | 2024-03-12 02:47 | External Medical Summary | Summary of Care ---
Author Name Unknown Organization [facility] Address [address] [facility] [place] [address] Phone [phone] Care Team Providers Care Digital Solutions Architect Name Role Phone Diana Davis PA-C Primary Care Provider +1- [phone] Reason for Visit * Reason Onset Date Comments Advice 09/15/2023 Encounter Details Date Type Department Care Team (Late st Contact Info) Description 09/15/2023 Telephone [place] [address] [place] [phone] Diana Davis PA-C [address] [place] [address] [place] [address] [phone] Advice Allergies No known active allergiesdocumented as of [...] encounter Miscellaneous Notes * Telephone Encounter - Zully Marsh CMA - 09/15/2023 11:42 AM EST Spoke with pt he is keeping may appt and will have results sent. * Telephone Encounter - Anastasia Wolf OSA - 09/15/2023 11:30 AM EST Caller stated that they received order for patient for a diabetic eye exam. She stated patient was seen with them for this on 02/23/23 and is scheduled with them again for this on 02/29/24. Caller would like to know if patient is in need of another one sooner than what he is scheduled for. Please advise. documented in this encounter Plan of Treatment Upcoming Encounters Date Type Department Care Team (Late st Contact Info) Description 08/28/2024 8:00 AM EST Nurse Only Ancillary, [place] [address] [place] [address] [place], Nurse Annual Wellness [address] [place] [address] [place] [address] 09/18/2024 8:00 AM EST Office Visit Family Practice, [place] [address] [place] [address] Diana Davis, PAMargret [facility] [place] [address] Scheduled Procedures Name Priority Associated Diagnoses Date/Ti [...] this encounter Medical Devices Implanted Type Area Rounding And Backing Machine Operator Device Identifier Shelf Expiration Date Model / Serial / Lot Lens Intraoc 20.0 - [id number] - [id number] Implanted:Qty: 1 on 11/18/2021 by Leandro Jung MD at OR [facility] Left: Eye BAUSCH & LOMB 05/24/2026 [id number] / [id number] / [id number] Lens Intraoc 19.5 - [id number] - [id number] Implanted:Qty: 1 on 12/02/2021 by Lenadro Jung MD at OR [facility] Right: Eye BAUSCH & LOMB 08/24/2026 [id number] / [id number] / documented as of this encounter Care Teams Digital Solutions Architect Relationship Specialty Start Date End Date Diana Davis PA-C [address] [facility] [address] [place] [address] PCP - General Physician Tent Finisher 09/15/22 documented as of this encounter
--- OUTSIDE RECORDS SUMMARY | 2024-03-12 02:47 | External Medical Summary | Summary of Care ---
Author Name Unknown Organization [facility] Address [address] [place] [facility] [address] Phone [phone] Care Team Providers Care Machine Scallop Cutter Name Role Phone Diana Davis PA-C Primary Care Provider +1- [phone] Reason for Visit * Reason Onset Date Comments Health Maintenance 12/31/2023 Encounter Details Date Type Department Care Team (Late st Contact Info) Description 12/31/2023 Telephone [place] [address] [place], [place] [phone] Diana Davis PA-C [facility] [address] [place], [place] [phone] Health Maintenance Allergies No known active allergiesdocumented as of this encounter (statuses as of 12/31/2023) Medications Medication Sig Dispensed Refills Start Date End Date Status MULTIVITAMINS PO CAPS Take by mouth. 0 Active Ibuprofen 800 MG Oral Tablet (Motrin)Indications: Midline low back pain without sciatica Take 1 Tablet by mouth 3 times a day as needed for Pain, Moderate. 90 Tablet 3 02/10/2023 Active Tamsulosin HCl 0.4 MG Oral Capsule (Flomax)Indications: Renal colic Take 1 capsule by mouth once daily 90 Capsule 3 10/13/2023 Active Lisinopril 10 MG Oral Tablet (Prinivil)Indication s:HTN, goal to be determined TAKE 1 TABLET BY MOUTH IN THE MORNING 90 Tablet 3 12/03/2023 Active Allopurinol 300 MG Oral Tablet (Zyloprim)Indication s:Gout TAKE 1 TABLET BY MOUTH IN THE MORNING 90 Tablet 3 12/03/2023 Active Rosuvastatin Calcium 10 MG Oral Tablet (Crestor)Indications :Hyperlipidemia with target LDL less than 100 TAKE 1 TABLET BY MOUTH IN THE MORNING 90 Tablet 3 12/03/2023 Active documented as of this encounter (statuses as of 12/31/2023) Active Problems Problem Noted Date Diagnosed Date [...] as of this encounter (statuses as of 12/31/2023) Resolved Problems Problem Noted Date Diagnosed Date [...] as of this encounter (statuses as of 12/31/2023) Immunizations Name Administration Dates Next Due COVID-19 [...] Telephone Encounter - Ama Rose LPN - 12/31/2023 8:54 AM EST Care Gaps Comprehensive Care Outreach [...] - [facility] 6.0 (H) 08/04/2018 08:50 AM BP Readings from Last 1 Encounters: 09/15/23 102/64 Reviewed Health Maintenance below: Health Maintenance Topic Date Due HbA1c 03/08/2024 Depression Screening 08/23/2024 Albumin/Creatinine Ratio 09/08/2024 GFR 09/08/2024 Diabetic Foot Exam 09/15/2024 Care Gap Outreach Action Taken: Left message AWV documented in this encounter Plan of Treatment Upcoming Encounters Date Type Department Care Team (Late st Contact Info) Description 08/28/2024 8:00 AM EST Nurse Only [place], [place] [address] [place] [address] Krish Nurse Annual Wellness [address] [place] [address] 09/18/2024 8:00 AM EST Office Visit Family Practice, [place] [address] [address] [place] [address] Diana Davis PA-C [address] [facility] [address] [place] [address] Scheduled Procedures Name Priority Associated Diagnoses Date/Ti me COLONOSCOPY FLEXIBLE PROXIMA L DIAGNOSTIC Recall Encounter for screening colonoscopy Health Maintenance Due Date Last Done Comments Zoster Vaccines (1 of 2) 1997 COVID-19 Vaccine ( season) 2023 08/13/2021, 02/04/2021, 01/10/2021 Diabetic Eye Exam 02/24/2024 02/23/2023, 02/23/2023 HbA1c 03/08/2024 09/08/2023, 08/26, 08/29/2021, Additional history [...] on patient's age to complete this topic Hepatitis B Aged Out No longer eligi ble based on patient's age to complete this topic MENINGOCOCCAL (MENACTRA/MENVEO) Aged Out No longer eligible based on patient's age to complete this topic Sigmoidoscopy Discontinued documented as of this encounter Medical Devices Implanted Type Area Sales Representative Malt [employer] Device Identifier Shelf Expiration Date Model / Serial / Lot Lens Intraoc 20.0 - [id number] - [id number] Implanted:Qty: 1 on 11/18/2021 by Leandro Jung MD at OR [facility] Left: Eye BAUSCH & LOMB 05/24/2026 [id number] / [id number] / [id number] Lens Intraoc 19.5 - [id number] - [id number] Implanted:Qty: 1 on 12/02/2021 by Leandro Jung MD at OR [facility] Right: Eye BAUSCH & LOMB 08/24/2026 [id number] / [id number] / documented as of this encounter Care Teams Machine Scallop Cutter Relationship Specialty Start Date End Date Diana Davis PA-C [address] [facility] [address] [place] [address] PCP - General Physician Customer Service Technician 09/15/22 documented as of this encounter
--- OUTSIDE RECORDS SUMMARY | 2024-03-12 02:47 | External Medical Summary | Summary of Care ---
Author Name Unknown Organization [facility] Address [address] [facility] [address] Phone [phone] Care Team Providers Care Wool Hat Sanding Machine Operator Name Role Phone Fabio aDvis PA-C Primary Care Provider +1- [phone] Reason for Visit * Reason Comments eRx-Medication Refill Encounter Details Date Type Department Care Team (Late st Contact Info) Description 10/12/[address] [place] [address] Fabio Davis PA-C [address] [facility] [address] [place] [address] Renal colic Allergies No known active allergiesdocumented as of this encounter (statuses as of 10/13/2023) Medications Medication Sig Dispensed Refills Start Date End Date Status MULTIVITAMINS PO CAPS Take by mouth. 0 Active Ibuprofen 800 MG Oral Tablet (Motrin)Indicatio ns:Midline low back pain without sciatica Take 1 Tablet by mouth 3 times a day as needed for Pain, Moderate. 90 Tablet 3 02/10/2023 Active Rosuvastatin Calcium 10 MG Oral Tablet (Crestor)Indicati ons:Hyperlipidemi a with target LDL less than 100 TAKE 1 TABLET BY MOUTH IN THE MORNING 90 Tablet 1 2023 Active Lisinopril 10 MG Oral Tablet (Prinivil)Indicat ions:HTN, goal to be determined TAKE 1 TABLET BY MOUTH IN THE MORNING 90 Tablet 1 2023 Active Allopurinol 300 MG Oral Tablet (Zyloprim)Indicat ions:Gout TAKE 1 TABLET BY MOUTH IN THE MORNING 90 Tablet 1 2023 Active Tamsulosin HCl 0.4 MG Oral Capsule (Flomax)Indicatio ns:Renal colic Take 1 capsule by mouth once daily 90 Capsule 3 10/13/2023 Active Tamsulosin HCl 0.4 MG Oral Capsule (Flomax)Indicatio ns:Renal colic Take 1 capsule by mouth once daily 90 Capsule 2 02/02/2023 10/13/2023 Discontinued documented as of this encounter (statuses as of 10/13/2023) Active Problems Problem Noted Date Diagnosed Date [...] as of this encounter (statuses as of 10/13/2023) Resolved Problems Problem Noted Date Diagnosed Date [...] as of this encounter (statuses as of 10/13/2023) Immunizations Name Administration Dates Next Due COVID-19 mRNA, LNP-s, No Pre serve, 2-Dose Series (EsLife) 08/13/2021,02/04/2021,01/10/2021 Pneumococcal Conjugate Vacc, 13 Valent (Prevnar) [...] encounter Miscellaneous Notes * Telephone Encounter - Ansley Romeo [facility] - 10/13/2023 10:37 AM ESTSigned Prescriptions: Disp Refills Tamsulosin HCl 0.4 MG Oral Capsule (Flomax)90 Cap*3 Sig: Take 1 capsule by mouth once dailyAuthorizing Provider: FABIO DAVIS User: ANSLEY ROMEO-- documented in this encounter Plan of Treatment Upcoming Encounters Date Type Department Care Team (Late st Contact Info) Description 08/28/2024 8:00 AM EST Nurse Only Ancillary, [address] [address] [place], Nurse Annual Wellness [address] [place] [address] [place] [address] 09/18/2024 8:00 AM EST Office Visit Family [facility], [address] [address] Fabio Davis PA-C [address] [facility] [address] [address] Scheduled Procedures Name Priority Associated Diagnoses Date/Ti [...] this encounter Medical Devices Implanted Type Area Forming Machine Operator Device Identifier Shelf Expiration Date Model / Serial / Lot Lens Intraoc 20.0 - [id number] - [id number] Implanted:Qty: 1 on 11/18/2021 by Leandro Jung MD at [facility] Left: Eye BAUSCH & LOMB 05/24/2026 [id number] / [id number] / [id number] Lens Intraoc 19.5 - [id number] - [id number] Implanted:Qty: 1 on 12/02/2021 by Leandro Jung MD at OR [facility] Right: Eye BAUSCH & LOMB 08/24/2026 [id number] / [id number] / documented as of this encounter Visit Diagnoses Diagnosis Renal colic documented in this encounter Care Teams Wool Hat Sanding Machine Operator Relationship Specialty Start Date End Date Fabio Davis PA-C [address] [place] [address] [place] [address] PCP - General Physician Route Delivery Service Driver 09/15/22 documented as of this encounter
--- OUTSIDE RECORDS SUMMARY | 2024-03-12 02:47 | External Medical Summary | Summary of Care ---
Author Name Unknown Organization [facility] [address] [facility] [address] Phone [phone] Care Team Providers Care Food Manager Name Role Phone Fabio Davis PA-C Primary Care Provider +1- [phone] Reason for Visit * Reason Comments eRx-Medication Refill Encounter Details Date Type Department Care Team (Late st Contact Info) Description 12/03/2023 Refill [place] [address] [place] [address] Fabio Davis PA-C [address] [place] [address] [place] [address] HTN, goal to be determined; Gout; Hyperlipidemia with target LDL less than 100 Allergies No known active allergiesdocumented as of this encounter (statuses as of 12/03/2023) Medications Medication Sig Dispensed Refills Start Date [...] 10/13/2023 Active Lisinopril 10 MG Oral Tablet (Prinivil)Indicat ions:HTN, goal to be determined TAKE 1 TABLET BY MOUTH IN THE MORNING 90 Tablet 3 12/03/2023 Active Allopurinol 300 MG Oral Tablet (Zyloprim)Indicat [...] IN THE MORNING 90 Tablet 1 2023 12/03/2023 Discontinued Lisinopril 10 MG Oral Tablet (Prinivil)Indicat ions:HTN, goal to be determined TAKE 1 TABLET BY MOUTH IN THE MORNING 90 Tablet 1 2023 12/03/2023 Discontinued Allopurinol 300 MG Oral Tablet (Zyloprim)Indicat ions:Gout TAKE 1 TABLET BY MOUTH IN THE MORNING 90 Tablet 1 2023 12/03/2023 Discontinued documented as of this encounter (statuses as of 12/03/2023) Active Problems Problem Noted Date Diagnosed Date [...] as of this encounter (statuses as of 12/03/2023) Resolved Problems Problem Noted Date Diagnosed Date [...] as of this encounter (statuses as of 12/03/2023) Immunizations Name Administration Dates Next Due COVID-19 [...] encounter Miscellaneous Notes * Telephone Encounter - Chris Hawkins RPh - 12/03/2023 3:57 PM ESTSigned Prescriptions: Disp Refills Lisinopril 10 MG Oral Tablet (Prinivil) 90 Tab*3 Sig: TAKE 1 TABLET BY MOUTH IN THE MORNINGAuthorizing Provider: FABIO DAVIS User: CHRIS HAWKINS Allopurinol 300 MG Oral Tablet (Zyloprim) 90 Tab*3 Sig: TAKE 1 TABLET BY MOUTH IN THE MORNINGAuthorizing Provider: FABIO DAVIS User: CHRIS HAWKINS Rosuvastatin Calcium 10 MG Oral Tablet (Cr*90 Tab*3 Sig: TAKE 1 TABLET BY MOUTH IN THE MORNINGAuthorizing Provider: FABIO DAVIS User: CHRIS HAWKINS documented in this encounter Plan of Treatment Upcoming Encounters Date Type Department Care Team (Late st Contact Info) Description 08/28/2024 8:00 AM EST Nurse Only Ancillary, [place] [address] [address] [place] [address] [place], Nurse Annual Wellness [address] [place] [address] [place] [address] 09/18/2024 8:00 AM EST Office Visit Family Practice, [place] [address] [address] [place] [address] Fabio Davis, PAMargret [address] [place] [address] [place] [address] Scheduled Procedures Name Priority Associated Diagnoses Date/Ti me COLONOSCOPY FLEXIBLE PROXIMA L DIAGNOSTIC Recall Encounter for screening colonoscopy Health Maintenance Due Date Last Done Comments Zoster Vaccines (1 of 2) 1997 Hepatitis [...] this encounter Medical Devices Implanted Type Area Honing Machine Operator Device Identifier Shelf Expiration Date Model / Serial / Lot Lens Intraoc 20.0 - [id number] - [id number] Implanted:Qty: 1 on 11/18/2021 by Leandro Jung MD at OR [facility] Left: Eye BAUSCH & LOMB 05/24/2026 [id number] / [id number] / [id number] Lens Intraoc 19.5 - [id number] - [id number] Implanted:Qty: 1 on 12/02/2021 by Leandro Jung MD at OR [facility] Right: Eye BAUSCH & LOMB 08/24/2026 [id number] / [id number] / documented as of this encounter Visit Diagnoses Diagnosis HTN, goal to be determined Unspecified essential hypertension Gout Gout, unspecified Hyperlipidemia with target LDL less than 100 Other and unspecified hyperlipidemia documented in this encounter Care Teams Food Manager Relationship Specialty Start Date End Date Fabio Davis PA-C [facility] [address] [facility] [place] [address] PCP - General Physician A P Supervisor 09/15/22 documented as of this encounter
[2024-03-12 07:22] LABS: Hematocrit (blood only) 39.7 % (42.0-52.0); Hemoglobin 13.7 g/dl (14.0-18.0); Mean Corpuscular Hemoglobin 32.4 pg (25.0-34.0); Mean Corpuscular Hgb Conc 34.5 g/dL (32.0-36.0); Mean Corpuscular Volume 93.9 fL (80.0-100.0); Mean Platelet Volume 9.5 fL (9.4-12.4); Platelet Count 201 K/uL (130-400); RDW Coefficient of Variation 13.5 % (11.5-14.5); RDW Standard Deviation 46.4 fL (36.4-46.3); Red Blood Count 4.23 M/uL (4.70-6.10); White Blood Count 11.99 K/ul (4.8-10.8)
[2024-03-12 07:33] LABS: BUN Creatinine Ratio 20.2 (10-20); Creatinine Clr Calc Pharmacy 83.1 ml/min; Est GFR (African American) 90.9 ml/min; Est GFR (Non-African American) 78.4 ml/min; Potassium 3.8 mmol/L (3.5-5.1)
--- NOTE | 2024-03-12 07:51 | Hospitalist Progress Note ---
Date of Service March 12, 2024 Assessment & Plan (1) Sepsis: (2) Prostatitis, acute: (3) Acute UTI (urinary tract infection): (4) Ureteritis: (5) Bladder outlet obstruction: (6) Multiple renal calculi: (7) Hydronephrosis, left: Plan Patient is a 78-year-old gentleman with PMHx significant for hypertension, hyperlipidemia, chronic back pain status post surgery, gout, prediabetes who presented to the ED with urinary complaints. Workup in the emergency room consistent with sepsis due to urinary tract infection most likely due to bladder outlet obstruction from BPH. Patient has also multiple renal calculi that may be contributing to his infection as well. At this point he is significantly ill with evidence of sepsis requiring hospital level care including IV hydration, IV medications, monitoring of laboratory studies and specialty consultation. Sepsis, POA Complicated UTI Obstructive Uropathy Prostatomegaly with chronic outlet Obstruction Bilateral Nephrolithiasis Infectious pyelitis/Ureteritis Pt presented with significant leukocytosis and tachycardia, urinary infectious source consistent with sepsis UA suggestive of infection, urine Cx currently growing gram negative rods Blood Cx x2 pending CT abd/pelvis noting the following: -bilateral kidney stones -9mm obstructing L kidney stone -prostatomegaly with chronic outlet obstruction -infectious pyelitis/ureteritis Urology consulted, appreciate recs -conservative management, monitoring currently Continue IV Rocephin at this time-pt with notable decrease in leukocytosis Continue NSS, finasteride and flomax Continue dominique Continue to monitor Anemia Hgb range of 13.7 to 14.9 Continue to monitor Hyponatremia Sodium range of 133-135 Continue to monitor Hyperglycemia AM hgba1c Continue other home meds as ordered Diet: HH DVT prophylaxis: Lovenox SQ Dispo: PT/OT ordered for recs Admission and Anticipated Discharge Date Admission Date: March 11, 2024 Subjective pt was seen laying in bed, resting comfortably. States he was finally able to eat in 4 days. Denied fevers or pain. Review of Systems Review of Systems: All systems reviewed & are unremarkable except as noted in Subjective Physical Exam Physical Exam: General: Alert, oriented. No acute distress Skin: No noted rashes or bruises Neuro: No gross deficits HEENT: NC/AT CV: RRR Resp: Breath sounds clear bilaterally, no increased effort of breathing. Abdomen: Soft, nontender, nondistended. Extremities: No edema in lower extremities bilaterally. Results & Data Results & Data Vital Signs (Past 12 Hours) Vital Signs Temp Pulse Resp BP Pulse Ox O2 Del Method 03/11/24 20:28 37.1 C 71 18 126/74 93 Room Air Diagnostic Findings Abdomen/Pelvis CT 03/11/24 11:[address] WITH IV CONTRAST CT DOSE: 1791.24 mGy.cm HISTORY: Acute nausea with vomiting and dysuria vomiting; dysuria; fevers TECHNIQUE: Multiaxial CT images of the abdomen and pelvis were performed following the IV administration of 90 cc of Optiray, A dose lowering technique was utilized adhering to the principles of ALARA. COMPARISON STUDY: 11/13/2020 FINDINGS: Cardiomegaly with moderate coronary artery calcifications. Calcified mediastinal and hilar lymph nodes. Mild cardiomegaly. Mild dependent subsegmental bibasilar atelectasis. No free air. Calcified granulomata of the spleen. Unremarkable pancreas, gallbladder and adrenal glands. Unremarkable liver. Subcentimeter hypodense focus of the left hepatic lobe on image 20 series 2. Patency of the hepatic and portal veins. There are numerous nonobstructing bilateral renal calculi measuring up to approximately 6 mm on the right and 8 mm on the left. There is moderate dilation of a superior pole calyx on the left secondary to an obstructing 9 mm calculus on image 165. Mild urothelial thickening of the right renal collecting system. Urine bladder wall thickening with partial distention. Perivesicular inflammatory stranding. Prostatomegaly. Small fat filled left inguinal hernia. Atherosclerosis of the aorta. No lymphadenopathy. Colonic diverticulosis. No bowel reduction or bowel wall thickening. Moderate fecal retention. Appendectomy. Unremarkable soft tissues. No acute fracture. Lumbar sacral fusion hardware with evidence of hardware loosening involving the S1 screws again noted. The L2 screws extending to the superior endplate. Progressively worsened severe intervertebral disc space narrowing with endplate irregularity at L1-L2. IMPRESSION: 1. 9 mm calculus of the interpolar left kidney cause obstruction of a superior pole calyx. 2. Bilateral nephrolithiasis. 3. Prostatomegaly with chronic outlet obstruction. 4. Urothelial thickening of the right renal collecting system and ureter suggestive of infectious pyelitis/ureteritis. 5. No bowel obstruction. 6. Additional findings as above. ACT 112: Negative or not required by law. The above report was generated using voice recognition software. It may contain grammatical, syntax or spelling errors. Electronically signed by: Genaro Donis M.D. 03/11/2024 12:45 PM
--- NOTE | 2024-03-12 08:04 | Urology Progress Note ---
Date of Service March 12, 2024 Assessment & Plan (1) Hydronephrosis, left: (2) Multiple renal calculi: (3) Acute UTI (urinary tract infection): Plan 78-year-old male admitted with nausea and vomiting. Labs showed a leukocytosis and a grossly positive urinalysis. He has nonobstructing stones and possibly some left upper pole obstruction but is asymptomatic from a flank pain standpoint Leukocytosis downtrending and patient is otherwise stable. No indication for left ureteral stent placement. I suspect the patient simply has a urinary tract infection Continue antibiotics, follow-up cultures and trend labs. Patient will require 10 to 14 days of antibiotics for complicated urinary tract infection Patient had an elevated PVR so Barlow catheter was placed last night. I suspect his infections are due to incomplete emptying. Recommend he be discharged with a catheter and urology can set up outpatient follow-up for a void trial and discussion of urologic issues Urology to follow peripherally. Urology will send message for short interval follow-up in clinic Admission and Anticipated Discharge Date Admission Date: March 11, 2024 Subjective No acute issues overnight. Afebrile with stable vitals. Leukocytosis is down trended to 11.9. Patient had a PVR of 518 after voiding last night so Barlow catheter was placed. Urine cultures growing out gram-negative bacilli. Patient is on ceftriaxone. Reports feeling better this morning. Physical Exam Physical Exam: General: Alert and oriented, no acute distress HEENT: Normocephalic, mucous membranes moist Pulmonary: Nonlabored respirations Abdomen: Nondistended : Barlow catheter draining clear yellow urine Extremities: Moves all 4 spontaneously Neuro: No gross deficits Skin: Warm, dry, no rashes noted Results & Data Vital Signs (Past 12 Hours) Vital Signs Temp Pulse Resp BP Pulse Ox O2 Del Method 03/11/24 20:28 37.1 C 71 18 126/74 93 Room Air PG Care Time/CCT Total # of Minutes Spent Total Time Spent with Patient: Total time spent is greater than 50% in coordination of care (as documented) at patient's floor/unit and/or counseling patient: Coding Level of Care Code 72682 SUB INP/OBS CARE 2/35MIN Diagnoses Hydronephrosis, left N13.30 Multiple renal calculi N20.0 Acute UTI (urinary tract infection) N39.0
[2024-03-12] MEDS: ROSUVASTATIN CALCIUM 10 MG TAB PO SCH (08:10)
[2024-03-12] MEDS: TAMSULOSIN HCL 0.4 MG CAP PO SCH (08:10)
[2024-03-12] MEDS: allopurinoL 300 MG TAB PO SCH (08:10)
[2024-03-12] MEDS: lisinopril 10 MG TAB PO SCH (08:10)
[2024-03-12] MEDS: MULTIVITAMIN TAB PO SCH (08:11)
[2024-03-12] MEDS: cefTRIAXone SODIUM 2,000 MG/50 ML BAG IV SCH (11:41)
[2024-03-13 06:28] LABS: Basophils # (auto) 0.03 K/uL (0.00-0.20); Basophils % (auto) 0.4 %; Eosinophils # (auto) 0.13 K/uL (0.00-0.50); Eosinophils % (auto) 1.8 %; Hematocrit (blood only) 38.7 % (42.0-52.0); Hemoglobin 13.2 g/dl (14.0-18.0); Immature Granulocytes # (auto) 0.02 K/uL (0.01-0.20); Immature Granulocytes % (auto) 0.3 %; Lymphocytes # (auto) 1.88 K/uL (1.20-3.40); Lymphocytes % (auto) 26.1 %; Mean Corpuscular Hemoglobin 31.7 pg (25.0-34.0); Mean Corpuscular Hgb Conc 34.1 g/dL (32.0-36.0); Mean Platelet Volume 9.4 fL (9.4-12.4); Monocytes # (auto) 0.84 K/uL (0.11-0.59); Monocytes % (auto) 11.7 %; Neutrophils # (auto) 4.31 K/uL (1.40-6.50); Neutrophils % (auto) 59.7 %; Platelet Count 238 K/uL (130-400); RDW Coefficient of Variation 13.3 % (11.5-14.5); RDW Standard Deviation 45.6 fL (36.4-46.3); Red Blood Count 4.16 M/uL (4.70-6.10); White Blood Count 7.21 K/ul (4.8-10.8)
[2024-03-13 06:38] LABS: BUN Creatinine Ratio 16.7 (10-20); Calcium 8.7 mg/dl (8.6-10.3); Creatinine Clr Calc Pharmacy 81.4 ml/min; Est GFR (African American) 88.6 ml/min; Est GFR (Non-African American) 76.5 ml/min; Magnesium 1.8 mg/dl (1.7-2.4); Potassium 3.8 mmol/L (3.5-5.1)
[2024-03-13 07:23] LABS: Estimated Average Glucose 134 mg/dl; Hemoglobin A1C 6.3 % (4.5-5.6)
--- NOTE | 2024-03-13 11:59 | Discharge Summary ---
Discharge Summary Date of Service March 13, 2024 Notes For Next Care Provider Per Urology, pt discharged with dominique. Please ensure followup with Urology after discharge. Medication Changes From Visit cefdinir 300mg BID x 12 more days Proscar 5mg daily Admission HPI Per Admitting Provider Patient is a 78-year-old gentleman with history of BPH. Presents to the emergency room today with about 5 days of significant dysuria. Over the last 24 to 48 hours he also started to have some chills and some nausea and had an episode of emesis yesterday. Was getting weaker and feeling more ill in general. He was encouraged to go to the emergency room today by his daughters. In the emergency room was noted to have significantly abnormal urinalysis. CT imaging of the abdomen pelvis is consistent with UTI enlarged prostate possible prostatitis is multiple renal calculi. ED provider did contact urology from the ED with patient's presentation who stated that there was no urgent need for surgical intervention and recommended medical management of the infection. Patient was referred to our service for further care. Time my evaluation patient seems to be somewhat improved. Does admit to some suprapubic pain and tenderness. States that he had severe dysuria over this week. He states the other night he woke up 22 times to urinate within about 6 hours. He did admit to some chills and felt hot but did not take his temperature to be sure if he had a fever. Does admit to some nausea. He states he has had normal bowel movements. States he has not been able to really eat much at all but was able to take some liquids. He denies any chest pain or shortness of breath. No new swelling in his hands arms legs or feet. Admission Exam Per Admitting Provider Constitutional: Alert, ill in appearance, nontoxic HEENT: Mucous membranes moist. Sclera clear Neck: Soft, no adenopathy Lungs: Clear to auscultation, decreased, no wheezes rales or rhonchi CV: S1-S2, regular Abdomen: Soft, suprapubic tenderness, mild guarding, no rigidity nondistended Extremities: No significant edema Musculoskeletal: No significant joint tenderness Neuro: No focal deficits Psych: Cooperative, normal mood Principal Dx & Hospital Course #1 = Principal Diagnosis (1) Sepsis: (2) Prostatitis, acute: (3) Acute UTI (urinary tract infection): (4) Ureteritis: (5) Bladder outlet obstruction: (6) Multiple renal calculi: (7) Hydronephrosis, left: Plan Patient is a 78-year-old gentleman with PMHx significant for hypertension, hyperlipidemia, chronic back pain status post surgery, gout, prediabetes who presented to the ED with urinary complaints. Workup in the emergency room consistent with sepsis due to urinary tract infection most likely due to bladder outlet obstruction from BPH. Patient has also multiple renal calculi that may be contributing to his infection as well. At this point he is significantly ill with evidence of sepsis requiring hospital level care including IV hydration, IV medications, monitoring of laboratory studies and specialty consultation. Sepsis, POA Complicated UTI Obstructive Uropathy Prostatomegaly with chronic outlet Obstruction Bilateral Nephrolithiasis Infectious pyelitis/Ureteritis Pt presented with significant leukocytosis and tachycardia, urinary infectious source consistent with sepsis UA suggestive of infection, urine Cx grew pansensitive Proteus Blood Cx x2 NGTD at 48hrs CT abd/pelvis noting the following: -bilateral kidney stones -9mm obstructing L kidney stone -prostatomegaly with chronic outlet obstruction -infectious pyelitis/ureteritis Urology consulted, appreciate recs. Urology noted the following: "Leukocytosis downtrending and patient is otherwise stable. No indication for left ureteral stent placement. I suspect the patient simply has a urinary tract infection Continue antibiotics, follow-up cultures and trend labs. Patient will require 10 to 14 days of antibiotics for complicated urinary tract infection Patient had an elevated PVR so Dominique catheter was placed last night. I suspect his infections are due to incomplete emptying. Recommend he be discharged with a catheter and urology can set up outpatient follow-up for a void trial and discussion of urologic issues" Pt was treated with IV Rocephin for 2 days and discharged with 12 more days of po cefdinir 300mg BID Continued NSS, finasteride and flomax, continue finasteride and flomax after discharge Discharged with dominique per Urology recs with close Urology follow up. Anemia Hgb range of 13 to 14 Stable Hyponatremia Sodium range of 133-135 Stable Prediabetes hgba1c of 6.3 Pt prediabetic, close pcp followup recommended. Continue other home meds as ordered Discharge Exam General: Alert, oriented. No acute distress Skin: No noted rashes or bruises Neuro: No gross deficits HEENT: NC/AT CV: RRR Resp: Breath sounds clear bilaterally, no increased effort of breathing. Abdomen: Soft, nontender, nondistended. Extremities: No edema in lower extremities bilaterally. Updated Medication List Medication Instructions Recorded Confirmed Type allopurinol 300 mg tablet 300 mg PO QAM 11/13/20 03/11/24 History lisinopril 10 mg tablet 10 mg PO QAM 11/13/20 03/11/24 History multivitamin 1 tab PO DAILY 11/13/20 03/11/24 History rosuvastatin 10 mg tablet 10 mg PO DAILY 11/13/20 03/11/24 History tamsulosin 0.4 mg capsule 0.4 mg PO DAILY 03/11/24 03/11/24 History cefdinir 300 mg capsule 300 mg PO BID #24 caps 03/13/24 Rx finasteride 5 mg tablet 5 mg PO QAM #30 tabs 03/13/24 Rx Hospital Stay Data Consultations 03/11/24 13:15 ED Decision to Admit Stat 03/11/24 15:20 Consult Urology Routine Diagnostic Imagining Performed 03/11/24 11:08 CT Abd and Pelvis [CT abd pelvis IV con only] Stat Abdomen/Pelvis CT 03/11/24 11:[address] WITH IV CONTRAST CT DOSE: 1791.24 mGy.cm HISTORY: Acute nausea with vomiting and dysuria vomiting; dysuria; fevers TECHNIQUE: Multiaxial CT images of the abdomen and pelvis were performed following the IV administration of 90 cc of Optiray, A dose lowering technique was utilized adhering to the principles of ALARA. COMPARISON STUDY: 11/13/2020 FINDINGS: Cardiomegaly with moderate coronary artery calcifications. Calcified mediastinal and hilar lymph nodes. Mild cardiomegaly. Mild dependent subsegmental bibasilar atelectasis. No free air. Calcified granulomata of the spleen. Unremarkable pancreas, gallbladder and adrenal glands. Unremarkable liver. Subcentimeter hypodense focus of the left hepatic lobe on image 20 series 2. Patency of the hepatic and portal veins. There are numerous nonobstructing bilateral renal calculi measuring up to approximately 6 mm on the right and 8 mm on the left. There is moderate dilation of a superior pole calyx on the left secondary to an obstructing 9 mm calculus on image 165. Mild urothelial thickening of the right renal collecting system. Urine bladder wall thickening with partial distention. Perivesicular inflammatory stranding. Prostatomegaly. Small fat filled left inguinal hernia. Atherosclerosis of the aorta. No lymphadenopathy. Colonic diverticulosis. No bowel reduction or bowel wall thickening. Moderate fecal retention. Appendectomy. Unremarkable soft tissues. No acute fracture. Lumbar sacral fusion hardware with evidence of hardware loosening involving the S1 screws again noted. The L2 screws extending to the superior endplate. Progressively worsened severe intervertebral disc space narrowing with endplate irregularity at L1-L2. IMPRESSION: 1. 9 mm calculus of the interpolar left kidney cause obstruction of a superior pole calyx. 2. Bilateral nephrolithiasis. 3. Prostatomegaly with chronic outlet obstruction. 4. Urothelial thickening of the right renal collecting system and ureter suggestive of infectious pyelitis/ureteritis. 5. No bowel obstruction. 6. Additional findings as above. ACT 112: Negative or not required by law. The above report was generated using voice recognition software. It may contain grammatical, syntax or spelling errors. Electronically signed by: Genaro Donis M.D. 03/11/2024 12:45 PM Pending Results Patient Have Any Pending Studies at Discharge: No Discharge Instructions Given to Patient (Per Discharging Provider) Mr. Benz, You were seen by the Urologist and treated for a severe urinary tract infection as well as a kidney stone that was blocking your urinary tract. The urologist noted that you were stable for discharge with a dominique and that you would need a total of about 14 days of antibiotic treatment. We are discharging you home with 12 more days. Urology would like you to follow up in the office for continued followup and for further management of your dominique. We added the medication Proscar to help with your prostate enlargement. Please also continue taking your flomax at home. Please also keep close follow up with your primary care provider after discharge. Please do not hesitate to come back to the emergency room if your symptoms worsen or return. It was a pleasure taking care of you while you were here. Total Time Total Time Spent Total Time Spent (In Minutes): 75
== END 2024-03-13 14:04 | disposition home or self-care (01) | DRG 872 ==
LOC: ED 10:48 → 3N 13:46 → SUATTDRO 13:46 → 3N 14:48

== ENCOUNTER 2024-05-05 07:34 | Inpatient (IN) ==
--- NOTE | 2024-05-05 07:58 | Emergency Department Note ---
History of Present Illness General Chief complaint: Illness Stated complaint: KIDNEY STONES, UTI, POSSIBLE BOWEL PROBLEMS Time Seen by Provider: 05/05/24 07:41 Source: patient, family ( and daughter who are at the bedside), RN notes reviewed and old records reviewed (05/03/2024-outpatient urology visit for prostate issues) Mode of arrival: ambulatory Limitations: no limitations History of Present Illness This patient 79-year-old male who has history of prostate disease and UTIs, comes in after not feeling well overnight he developed chills and vomiting. He denies abdominal pain although has had a knot in his stomach since he ate corn a couple days ago. No diarrhea temperature of 100.1 at 5:00 in the morning. He was recently hospitalized in February for what was thought to be UTI although his cultures were negative he got better with antibiotics he then had the symptoms again and got better with antibiotics. He has not taken any Tylenol this morning no respiratory symptoms or cough he feels generally very weak .he has had some dysuria. No back pain no rash no tick bites. Home Medications Medication Instructions Recorded Confirmed Type allopurinol 300 mg tablet 300 mg PO QAM 11/13/20 05/05/24 History lisinopril 10 mg tablet 10 mg PO QAM 11/13/20 05/05/24 History multivitamin 1 tab PO DAILY 11/13/20 05/05/24 History rosuvastatin 10 mg tablet 10 mg PO DAILY 11/13/20 05/05/24 History tamsulosin 0.4 mg capsule 0.4 mg PO DAILY 03/11/24 05/05/24 History finasteride 5 mg tablet 5 mg PO QAM #90 tabs 05/03/24 05/05/24 Rx Allergies Allergy/AdvReac Type Severity Reaction Status Date / Time No Known Allergies Allergy Unverified 05/05/24 09:27 Past Med/Surg History Problem List (Updated 05/05/24 @ 13:48 by Mykel Guidry MD) High serum lactate (Acute) Sinus tachycardia (Acute) Erectile dysfunction Multiple renal calculi Sepsis (Acute) Acute UTI (urinary tract infection) (Acute) Medical History BPH with obstruction/lower urinary tract symptoms Hypertension Gout Dyslipidemia Surgical History History of back surgery History of appendectomy Social History Smoking Status: Never smoker Tobacco Type: Cigars Do You Dip or Chew Tobacco: Yes (chews cigars); Hx Alcohol Use: No Hx Substance Use: No Preferred Language: Setswana Communication Ability: Effective Hospitality Intern Required: No Beliefs That Will Affect Care: None marital status: Current Living Situation: Spouse Feels Safe at Home: Yes Assistive Devices: Denture - Upper, Denture - Lower and Hearing Aid - Bilateral Review of Systems A total of 10 systems reviewed and were otherwise negative Physical Exam Vital Signs Vital Signs - 24 hr 05/05/24 07:37 05/05/24 08:03 05/05/24 08:11 Temperature 37.7 C H Temperature Source Temporal Artery Scan Pulse Rate 116 H 106 H 108 H Pulse Rate from SpO2 Sensor Pulse Rhythm Regular Pulse Strength Normal Respiratory Rate 20 24 Respiratory Effort / Characteristics Non-Labored Spontaneous Respiratory Depth Normal Respiratory Pattern Regular Blood Pressure 132/83 Blood Pressure Mean 99 Blood Pressure Position Sitting Pulse Oximetry 91 95 Oxygen Delivery Method Room Air Room Air Sepsis Recent Fever Within 48 Hours Yes Sepsis New/Unexplained Change in Mental Status No Sepsis Action Taken by Nursing No Action Required 05/05/24 08:42 05/05/24 09:10 05/05/24 09:12 Temperature 37.4 C Temperature Source Oral Pulse Rate 88 92 H Pulse Rate from SpO2 Sensor 89 91 H Pulse Rhythm Pulse Strength Respiratory Rate 24 24 Respiratory Effort / Characteristics Respiratory Depth Respiratory Pattern Blood Pressure 123/84 129/72 Blood Pressure Mean 97 91 Blood Pressure Position Pulse Oximetry 96 92 Oxygen Delivery Method Room Air Room Air Sepsis Recent Fever Within 48 Hours Sepsis New/Unexplained Change in Mental Status Sepsis Action Taken by Nursing 05/05/24 09:30 05/05/24 10:06 Temperature Temperature Source Pulse Rate 86 80 Pulse Rate from SpO2 Sensor 87 80 Pulse Rhythm Pulse Strength Respiratory Rate 23 19 Respiratory Effort / Characteristics Respiratory Depth Respiratory Pattern Blood Pressure 128/74 119/69 Blood Pressure Mean 92 85 Blood Pressure Position Pulse Oximetry 91 96 Oxygen Delivery Method Room Air Sepsis Recent Fever Within 48 Hours Sepsis New/Unexplained Change in Mental Status Sepsis Action Taken by Nursing General: Well developed well nourished [id number] older male who appears in no acute distress, breathing comfortably on room air. Normal speech HEENT: Normal cephalic atraumatic. Pupils are equal round and reactive to light. Extraocular movements are intact. Oropharynx is pink with moist mucous membranes. No swelling of the mouth lips or tongue. Neck: Supple with a midline trachea. No meningeal signs or stiffness, no JVD or bruits. No Stridor. Chest: Clear to auscultation bilaterally. No wheezes or rhonchi. No increased work of breathing. Heart: Regular rate and rhythm without murmurs or gallops. Abdomen: Soft nontender, nondistended without rebound guarding or rigidity. Extremities: No cyanosis clubbing or edema. No calf tenderness or assymetry Spine/Back. Non tender to palpation. No CVA tenderness Skin: Good turgor without rashes. Neurologic exam: Cranial nerves two through 12 are intact. Motor and sensation are intact and symmetrical throughout. Course Administered Medications Enoxaparin Sodium (Enoxaparin Inj 40 Mg/0.4 Ml Syr) 40 mg SQ Q24H RYLEY Stop: 06/04/24 10:59 Last Admin: 05/05/24 11:15 Dose: 40 mg Documented By: MICHAEL Sodium Chloride (Nss) 1,000 mls @ 100 mls/hr IV .Q10H RYLEY Stop: 05/05/24 20:29 Last Admin: 05/05/24 10:44 Dose: 100 mls/hr Documented By: MICHAEL Discontinued Medications Acetaminophen (Acetaminophen 325 Mg Tab) 650 mg PO NOW STA Stop: 05/05/24 07:59 Last Admin: 05/05/24 08:14 Dose: 650 mg Documented By: HORACIO Sodium Chloride (Nss) 1,000 mls @ 999 mls/hr IV .Q1H1M RYLEY Stop: 05/05/24 09:00 Last Infusion: 05/05/24 09:54 Dose: Infused Documented By: Admin: 05/05/24 08:09 Dose: 999 mls/hr Documented By: HORACIO Ceftriaxone Sodium (Rocephin) 2,000 mg in 50 mls @ 100 mls/hr IV NOW STA Stop: 05/05/24 08:27 Last Infusion: 05/05/24 09:54 Dose: Infused Documented By: Admin: 05/05/24 08:36 Dose: 100 mls/hr Documented By: HORACIO Magnesium Sulfate/Dextrose (Magnesium Sulfate / D5w) 1 gm in 100 mls @ 50 mls/hr IV ONE ONE Stop: 05/05/24 12:18 Last Infusion: 05/05/24 12:39 Dose: Infused Documented By: Admin: 05/05/24 10:43 Dose: 50 mls/hr Documented By: MICHAEL Medical Decision Making Differential Diagnosis Sepsis, UTI, tickborne illness, intra-abdominal process, kidney stone/obstructive uropathy, pneumonia, COVID, viral illness Medical Records Attestation: I reviewed the patient's medical records. Home Medications Current Medication List: was personally reviewed by ms Laboratory Data Attestation: I reviewed the patient's lab results. 05/05/24 07:55 05/05/24 07:55 Lab Results 05/05/24 05/05/24 05/05/24 Range/Units 07:55 07:55 07:55 WBC 14.18 H (4.8-10.8) K/ul RBC 4.27 L (4.70-6.10) M/uL Hgb 13.7 L (14.0-18.0) g/dl Hct 40.1 L (42.0-52.0) % MCV 93.9 (80.0-100.0) fL MCH 32.1 (25.0-34.0) pg MCHC 34.2 (32.0-36.0) g/dL RDW Std Deviation 47.2 H (36.4-46.3) fL RDW Coeff of Samara 13.8 (11.5-14.5) % Plt Count 217 (130-400) K/uL MPV 9.1 L (9.4-12.4) fL Immature Gran % (Auto) 0.6 % Neut % (Auto) 77.6 % Lymph % (Auto) 9.0 % Ford % (Auto) 12.6 % Eos % (Auto) 0.1 % Baso % (Auto) 0.1 % Neut # (Auto) 11.02 H (1.40-6.50) K/uL Lymph # (Auto) 1.27 (1.20-3.40) K/uL Ford # (Auto) 1.78 H (0.11-0.59) K/uL Eos # (Auto) 0.01 (0.00-0.50) K/uL Baso # (Auto) 0.02 (0.00-0.20) K/uL Immature Gran # (Auto) 0.08 (0.01-0.20) K/uL PT 11.9 (9.0-12.0) Seconds INR 1.1 (0.9-1.1) Sodium 133 L (136-145) mmol/L Potassium 4.0 (3.5-5.1) mmol/L Chloride 99 (98-107) mmol/L Carbon Dioxide 23 (21-32) mmol/L Anion Gap 11 (3-11) BUN 20 (6-23) mg/dl Creatinine 1.25 (0.6-1.4) mg/dl Est Cr Clr Drug Dosing 60.7 ml/min Est GFR ( Amer) 64.0 ml/min Est GFR (Non-Af Amer) 55.2 ml/min BUN/Creatinine Ratio 16.0 (10-20) Glucose 158 H (70-99(Fasting)) mg/dl Lactate 2.1 H* (0.4-2.0) mmol/L Calcium 9.2 (8.6-10.3) mg/dl Magnesium 1.6 L (1.7-2.4) mg/dl Total Bilirubin 0.6 (0.2-1.0) mg/dl Direct Bilirubin 0.2 (0-0.2) mg/dl AST 16 (13-39) U/L ALT 16 (7-52) U/L Alkaline Phosphatase 66 (34-104) U/L Troponin I High Sens 7.4 (0-20) pg/ml Total Protein 7.8 (6.0-8.3) gm/dl Albumin 4.0 (3.4-5.0) gm/dl Procalcitonin 0.40 (0-0.5) ng/ml Adenovirus (PCR) (NotDetected) Anaplasma Smear See Comment Cancelled Babesia Smear See Comment Cancelled B. pertussis DNA (PCR) (NotDetected) B.parapertussis DNA PCR (NotDetected) Lyme Disease Screen Negative (Negative) C. pneumoniae DNA (PCR) (NotDetected) Coronavirus OC43 (PCR) (NotDetected) Coronavirus HKU1 (PCR) (NotDetected) Coronavirus 229E (PCR) (NotDetected) SARS-CoV-2 (PCR) (NotDetected) Coronavirus NL63 (PCR) (NotDetected) Human Metapneumovir PCR (NotDetected) Influenza Type A (PCR) (NotDetected) Influenza Type B (PCR) (NotDetected) M. pneumoniae (PCR) (NotDetected) Parainfluenza 1 (PCR) (NotDetected) Parainfluenza 2 (PCR) (NotDetected) Parainfluenza 3 (PCR) (NotDetected) Parainfluenza 4 (PCR) (NotDetected) RSV (PCR) (NotDetected) Entero/Rhino (PCR) (NotDetected) 05/05/24 05/05/24 Range/Units 08:10 09:45 WBC (4.8-10.8) K/ul RBC (4.70-6.10) M/uL Hgb (14.0-18.0) g/dl Hct (42.0-52.0) % MCV (80.0-100.0) fL MCH (25.0-34.0) pg MCHC (32.0-36.0) g/dL RDW Std Deviation (36.4-46.3) fL RDW Coeff of Samara (11.5-14.5) % Plt Count (130-400) K/uL MPV (9.4-12.4) fL Immature Gran % (Auto) % Neut % (Auto) % Lymph % (Auto) % Ford % (Auto) % Eos % (Auto) % Baso % (Auto) % Neut # (Auto) (1.40-6.50) K/uL Lymph # (Auto) (1.20-3.40) K/uL Ford # (Auto) (0.11-0.59) K/uL Eos # (Auto) (0.00-0.50) K/uL Baso # (Auto) (0.00-0.20) K/uL Immature Gran # (Auto) (0.01-0.20) K/uL PT (9.0-12.0) Seconds INR (0.9-1.1) Sodium (136-145) mmol/L Potassium (3.5-5.1) mmol/L Chloride (98-107) mmol/L Carbon Dioxide (21-32) mmol/L Anion Gap (3-11) BUN (6-23) mg/dl Creatinine (0.6-1.4) mg/dl Est Cr Clr Drug Dosing ml/min Est GFR ( Amer) ml/min Est GFR (Non-Af Amer) ml/min BUN/Creatinine Ratio (10-20) Glucose (70-99(Fasting)) mg/dl Lactate 1.4 (0.4-2.0) mmol/L Calcium (8.6-10.3) mg/dl Magnesium (1.7-2.4) mg/dl Total Bilirubin (0.2-1.0) mg/dl Direct Bilirubin (0-0.2) mg/dl AST (13-39) U/L ALT (7-52) U/L Alkaline Phosphatase (34-104) U/L Troponin I High Sens (0-20) pg/ml Total Protein (6.0-8.3) gm/dl Albumin (3.4-5.0) gm/dl Procalcitonin (0-0.5) ng/ml Adenovirus (PCR) Not Detected (NotDetected) Anaplasma Smear Babesia Smear B. pertussis DNA (PCR) Not Detected (NotDetected) B.parapertussis DNA PCR Not Detected (NotDetected) Lyme Disease Screen (Negative) C. pneumoniae DNA (PCR) Not Detected (NotDetected) Coronavirus OC43 (PCR) Not Detected (NotDetected) Coronavirus HKU1 (PCR) Not Detected (NotDetected) Coronavirus 229E (PCR) Not Detected (NotDetected) SARS-CoV-2 (PCR) Not Detected (NotDetected) Coronavirus NL63 (PCR) Not Detected (NotDetected) Human Metapneumovir PCR Not Detected (NotDetected) Influenza Type A (PCR) Not Detected (NotDetected) Influenza Type B (PCR) Not Detected (NotDetected) M. pneumoniae (PCR) Not Detected (NotDetected) Parainfluenza 1 (PCR) Not Detected (NotDetected) Parainfluenza 2 (PCR) Not Detected (NotDetected) Parainfluenza 3 (PCR) Not Detected (NotDetected) Parainfluenza 4 (PCR) Not Detected (NotDetected) RSV (PCR) Not Detected (NotDetected) Entero/Rhino (PCR) Not Detected (NotDetected) Imaging Data Attestation: I personally reviewed and interpreted this imaging study as follows: My Impression: CT stone study-multiple stones but no obstructive uropathy seen Chest x-rayno acute infiltrate, failure, pneumothorax seen, as per my interpretation Radiologist's Impression: Chest X-Ray 05/05/24 07:50 XR chest 1V portable HISTORY: Sepsis COMPARISON: None. FINDINGS: The lungs are clear. Cardiac silhouette is normal in size. No pleural effusions. No pneumothorax. IMPRESSION: No acute process. ACT 112: Negative or not required by law. Electronically signed by: Baldo Kingston M.D. 05/05/2024 9:01 AM Abdomen/Pelvis CT 05/05/24 07:[address] WITHOUT CONTRAST CT DOSE: 1583.22 mGy.cm HISTORY: Acute fever in a patient with history of kidney stones fever, hx of stones TECHNIQUE: Multiaxial CT images of the abdomen and pelvis were performed without contrast. A dose lowering technique was utilized adhering to the principles of ALARA. COMPARISON STUDY: 04/10/2024 FINDINGS: Mild right hemidiaphragmatic elevation. Trace pleural effusions. Moderate coronary artery calcifications. Trace pericardial effusions. Mild bibasilar atelectasis versus scarring. No free air. The unenhanced spleen is unremarkable with punctate calcified granulomata. Unremarkable pancreas, and adrenal glands. Possible layering sludge versus cholelithiasis. Unremarkable liver. Bilateral mild nonspecific perinephric stranding. Numerous nonobstructing bilateral renal calculi measuring up to 12 mm on the right and approximately 8 mm on the left. Cyst of the superior pole left kidney measures 2.5 cm. No ureteral calculi or hydronephrosis. Urinary bladder wall thickening with partial distention. Suggestion of bilateral urothelial thickening of the renal collecting systems. Prostatomegaly. Small fat filled left inguinal hernia. Atherosclerosis of the aorta without aneurysm. No lymphadenopathy. There is no bowel obstruction or bowel wall thickening. Colonic diverticulosis without acute diverticulitis. The appendix is reportedly surgically absent. Unremarkable soft tissues. Degenerative and postoperative changes of the spine. Posterior interbody daxa and screw fusion hardware at L2-S1 with L5-S1 discectomy. The left-sided pedicle screw at L2 is again noted partially extending into the superior endplate. There is associated lucency surrounding the screw. Severe disc space narrowing with endplate irregularity redemonstrated at the L1-L2 level which is unchanged from prior. IMPRESSION: 1. Nonobstructing bilateral renal calculi. No ureteral calculi or hydronephrosis. 2. Urothelial thickening of the renal collecting systems should be correlated with urinalysis to exclude infection. 3. No bowel obstruction or bowel wall thickening. 4. Colonic diverticulosis. 5. Additional findings as above. ACT 112: Negative or not required by law. The above report was generated using voice recognition software. It may contain grammatical, syntax or spelling errors. Electronically signed by: Genaro Donis M.D. 05/05/2024 9:44 AM ECG Data Attestation: I personally reviewed and interpreted this ECG as follows: Indication: + chest pain Rate (beats per minute): 105 Rhythm: + sinus tachycardia ECG Intervals/blocks: + Normal QRS, + Normal QT and + Normal LA ECG [place]: + Normal ECG ST segments: + Normal ST segments ECG Findings: + Other (Low voltage) Comparison ECG Date: from (04/10/2024) Change: no significant change MDM Narrative This patient is a 79-year-old male who comes in with fever and chills and weakness there is concern for sepsis. He has had apparently related to urinary or prostate source. I did order blood work including blood cultures and lactic acid as well as urinalysis. He does have history of kidney stones and given this I did do a CT to make sure there is no obstructive uropathy was given 1 L IV normal saline bolus. I have reviewed his old records and gave him IV antibiotics empirically as well. His white count is elevated 14 as is his lactic acid at 2.1 concerning for infection/sepsis. He has no significant anemia. His urinalysis does suggest a UTI, he has blood and white cells. The rest of his electrolytes look good. CAT scan does not show any obstructive uropathy. He is given a IV Rocephin 2 g. I discussed antibiotic choice and consultation with a ED pharmacist. Additionally I did consult and discussed the case with Oma lafleur who is the [facility] hospitalist. The patient will need to be admitted/observed for UTI/weakness/sepsis. Continuous cardiac monitoring: Orders placed in EMR for continuous cardiac monitoring. Upon my evaluation patient noted to be in sinus tachycardia with a rate of 100. Impression & Plan Sepsis, Sinus tachycardia, High serum lactate, Acute UTI (urinary tract infection) Discharge Plan Visit Data Chief Complaint: Illness Stated Complaint: KIDNEY STONES, UTI, POSSIBLE BOWEL PROBLEMS ED Provider: Mykel Guidry Discharge Problem: Sepsis, Sinus tachycardia, High serum lactate, Acute UTI (urinary tract infection) Discharge Instructions Interventions: ED Discharge Assessment Last Done: 05/05/24 10:23 Discharge Problem: Sepsis Qualifiers: Sepsis type: sepsis due to unspecified organism Sepsis acute organ dysfunction status: unspecified Qualified Code(s): A41.9 - Sepsis, unspecified organism
[2024-05-05] MEDS: SODIUM CHLORIDE 0.9% 1,000 ML IV SCH ×2 (08:09→10:44)
[2024-05-05] MEDS: ACETAMINOPHEN 325 MG TAB PO STA (08:14)
[2024-05-05 08:19] LABS: Basophils # (auto) 0.02 K/uL (0.00-0.20); Basophils % (auto) 0.1 %; Eosinophils # (auto) 0.01 K/uL (0.00-0.50); Eosinophils % (auto) 0.1 %; Hematocrit (blood only) 40.1 % (42.0-52.0); Hemoglobin 13.7 g/dl (14.0-18.0); Immature Granulocytes # (auto) 0.08 K/uL (0.01-0.20); Immature Granulocytes % (auto) 0.6 %; Lymphocytes # (auto) 1.27 K/uL (1.20-3.40); Mean Corpuscular Hemoglobin 32.1 pg (25.0-34.0); Mean Corpuscular Hgb Conc 34.2 g/dL (32.0-36.0); Mean Corpuscular Volume 93.9 fL (80.0-100.0); Mean Platelet Volume 9.1 fL (9.4-12.4); Monocytes # (auto) 1.78 K/uL (0.11-0.59); Monocytes % (auto) 12.6 %; Neutrophils # (auto) 11.02 K/uL (1.40-6.50); Neutrophils % (auto) 77.6 %; Platelet Count 217 K/uL (130-400); RDW Coefficient of Variation 13.8 % (11.5-14.5); RDW Standard Deviation 47.2 fL (36.4-46.3); Red Blood Count 4.27 M/uL (4.70-6.10); White Blood Count 14.18 K/ul (4.8-10.8)
[2024-05-05 08:31] LABS: Appearance Urine Cloudy (Clear); Bacteria Urine Automated None Seen (None Seen); Bilirubin Urine Negative (Negative); Blood Urine 3+ (Negative); Color Urine Yellow; Epithelial Cell Urine Auto 0-2 /hpf (0-2); Glucose Urine UA Negative (Negative); Ketones Urine Negative (Negative); Leukocyte Esterase Urine 3+ (Negative); Nitrite Urine Negative (Negative); Protein Urine 1+ (Negative); RBC Urine Automated >20 /hpf (0-2); Specific Gravity Urine 1.015 (1.000-1.030); Urobilinogen Urine Negative (Negative); WBC Urine Automated >50 /hpf (0-5)
[2024-05-05] MEDS: cefTRIAXone SODIUM 2,000 MG/50 ML BAG IV STA (08:36)
[2024-05-05 08:45] LABS: Bilirubin Direct 0.2 mg/dl (0-0.2); Bilirubin,Total 0.6 mg/dl (0.2-1.0); Calcium 9.2 mg/dl (8.6-10.3); Creatinine Clr Calc Pharmacy 60.7 ml/min; Est GFR (Non-African American) 55.2 ml/min; Magnesium 1.6 mg/dl (1.7-2.4); Total Protein 7.8 gm/dl (6.0-8.3)
[2024-05-05 08:50] LABS: Troponin I High Sensitivity 7.4 pg/ml (0-20)
[2024-05-05 08:58] LABS: INR 1.1 (0.9-1.1); Prothrombin Time 11.9 Seconds (9.0-12.0)
--- NOTE | 2024-05-05 09:04 | XRay Report ---
XR chest 1V portable HISTORY: Sepsis COMPARISON: None. FINDINGS: The lungs are clear. Cardiac silhouette is normal in size. No pleural effusions. No pneumot horax. IMPRESSION: No acute process. ACT 112: Negative or not required by law. Electronically signed by: Baldo Kingston M.D. 05/05/2024 9:01 AM
[2024-05-05 09:36] LABS: Adenovirus PCR Not Detected (NotDetected); Bordetella parapertussis PCR Not Detected (NotDetected); Bordetella pertussis PCR Not Detected (NotDetected); Chlamydia pneumoniae PCR Not Detected (NotDetected); Coronavirus 229E PCR Not Detected (NotDetected); Coronavirus CoV-2 (COVID19)PCR Not Detected (NotDetected); Coronavirus HKU1 PCR Not Detected (NotDetected); Coronavirus NL63 PCR Not Detected (NotDetected); Coronavirus OC43PCR Not Detected (NotDetected); Human Metapneumovirus PCR Not Detected (NotDetected); Influenza A PCR Not Detected (NotDetected); Influenza B PCR Not Detected (NotDetected); Mycoplasma pneumoniae PCR Not Detected (NotDetected); Parainfluenza Virus 1 PCR Not Detected (NotDetected); Parainfluenza Virus 2 PCR Not Detected (NotDetected); Parainfluenza Virus 3 PCR Not Detected (NotDetected); Parainfluenza Virus 4 PCR Not Detected (NotDetected); Respiratory Syncytial VirusPCR Not Detected (NotDetected); Rhinovirus/Enterovirus PCR Not Detected (NotDetected)
--- NOTE | 2024-05-05 09:45 | CT Scan Report ---
ABDOMEN AND PELVIS CT WITHOUT CONTRAST CT DOSE: 1583.22 mGy.cm HISTORY: Acute fever in a patient with history of kidney stones fever, hx of stones TECHNIQUE: Multiaxial CT images of the abdomen and pelvis were performed without contrast. A dose lo wering technique was utilized adhering to the principles of ALARA. COMPARISON STUDY: 04/10/2024 FINDINGS: Mild right hemidiaphragmatic elevation. Trace pleural effusions. Moderate coronary artery c alcifications. Trace pericardial effusions. Mild bibasilar atelectasis versus scarring. No free air. The unenhanced spleen is unremarkable with punctate calcified granulomata. Unremarkable pancreas, and adrenal glands. Possible layering sludge versus cholelithiasis. Unremarkable liver. Bilateral mild nonspecific perinephric stranding. Numerous nonobstructing bilateral renal calculi rubi suring up to 12 mm on the right and approximately 8 mm on the left. Cyst of the superior pole left ki dney measures 2.5 cm. No ureteral calculi or hydronephrosis. Urinary bladder wall thickening with par tial distention. Suggestion of bilateral urothelial thickening of the renal collecting systems. Prost atomegaly. Small fat filled left inguinal hernia. Atherosclerosis of the aorta without aneurysm. No l ymphadenopathy. There is no bowel obstruction or bowel wall thickening. Colonic diverticulosis without acute divertic ulitis. The appendix is reportedly surgically absent. Unremarkable soft tissues. Degenerative and pos toperative changes of the spine. Posterior interbody daxa and screw fusion hardware at L2-S1 with L5-S 1 discectomy. The left-sided pedicle screw at L2 is again noted partially extending into the superior endplate. There is associated lucency surrounding the screw. Severe disc space narrowing with endpla te irregularity redemonstrated at the L1-L2 level which is unchanged from prior. IMPRESSION: 1. Nonobstructing bilateral renal calculi. No ureteral calculi or hydronephrosis. 2. Urothelial thickening of the renal collecting systems should be correlated with urinalysis to excl ude infection. 3. No bowel obstruction or bowel wall thickening. 4. Colonic diverticulosis. 5. Additional findings as above. ACT 112: Negative or not required by law. The above report was generated using voice recognition software. It may contain grammatical, syntax o r spelling errors. Electronically signed by: Genaro Donis M.D. 05/05/2024 9:44 AM
[2024-05-05] MEDS ORDERED: cefTRIAXone SODIUM 1,000 MG/50 ML BAG IV SCH (10:30)
--- NOTE | 2024-05-05 10:39 | History & Physical Report ---
Date of Service May 05, 2024 Assessment & Plan (1) Sepsis: (2) Acute UTI (urinary tract infection): (3) Multiple renal calculi: (4) BPH with obstruction/lower urinary tract symptoms: Plan: Admit to [facility] Patient presenting from home with reports of fever, nausea, vomiting In the ED, patient tachycardic in the low 100s, WBC 14 K, lactate 2.1, UA suggestive of UTI. Heart rate and lactate improved with IVF. History of UTI 02/2024 with urine culture growing Proteus History of BPH and renal calculi. CT ABD/pelvis showing prostatomegaly, nonobstructing bilateral renal calculi. No ureteral calculi or hydronephrosis. Urothelial thickening noted. Received IV ceftriaxone in the ED, will continue with Continue IVF throughout the day today Follow urine and blood cultures Will need outpatient follow-up with urology, notified Bev COLLINS of patient's hospital admission (5) Hypertension: Plan: Will hold lisinopril for now due to borderline low BP/sepsis, resume as able (6) Gout: Plan: Continue allopurinol (7) Dyslipidemia: Plan: Continue statin DVT PROPHYLAXIS SQ Lovenox Patient seen in collaboration with Dr. Morales Stephenson spent a total of 75 minutes coordinating, documenting, and providing care for this patient excluding time spent in the performance of separately billed services. This included personally reviewing all current laboratories and imaging studies, medication reconciliation, outpatient chart review, and discussion with specialists. Admission and Anticipated Discharge Date Admission Date: May 05, 2024 History of Present Illness Chief Complaint: Fever, nausea, vomiting Primary Care Provider: Diana Davis PA-C 79-year-old male with PMH HTN, gout, BPH, renal calculi, 79-year-old male with PMH HTN, gout, BPH, renal calculi, HLD, and other problems listed below who presents to the ED for evaluation of fever, nausea, vomiting. History is obtained from the patient and review of outpatient PCP and urology records. Patient reports last evening he developed shaking chills, fever, vomiting. Reports he continued to have a fever this morning of 101. Patient then presented to the ED for further evaluation. Patient does carry a history of UTI and kidney stones. Was seen by urology as an outpatient on 05/03 for routine visit and had no complaints at that time. Patient reports chronic back pain that is unchanged from baseline. He reports he developed dysuria yesterday, no hematuria. Denies chest pain and shortness of breath. No lightheadedness, dizziness, diaphoresis, syncopal events. He denies abdominal pain. In the ED, patient was tachycardic in the low 100s. labs show WBC 14 K, lactate 2.1, UA suggestive of UTI. CT ABD/pelvis shows Nonobstructing bilateral renal calculi. No ureteral calculi or hydronephrosis. Patient was given Tylenol, IVF, IV ceftriaxone. Allergies Allergy/AdvReac Type Severity Reaction Status Date / Time No Known Allergies Allergy Unverified 05/05/24 09:27 Home Medications Medication Instructions Recorded Confirmed Type allopurinol 300 mg tablet 300 mg PO QAM 11/13/20 05/05/24 History lisinopril 10 mg tablet 10 mg PO QAM 11/13/20 05/05/24 History multivitamin 1 tab PO DAILY 11/13/20 05/05/24 History rosuvastatin 10 mg tablet 10 mg PO DAILY 11/13/20 05/05/24 History tamsulosin 0.4 mg capsule 0.4 mg PO DAILY 03/11/24 05/05/24 History finasteride 5 mg tablet 5 mg PO QAM #90 tabs 05/03/24 05/05/24 Rx Past Med/Surg History Problem List (Updated 05/05/24 @ 13:48 by Mykel Guidry MD) High serum lactate (Acute) Sinus tachycardia (Acute) Erectile dysfunction Multiple renal calculi Sepsis (Acute) Acute UTI (urinary tract infection) (Acute) Medical History BPH with obstruction/lower urinary tract symptoms Hypertension Gout Dyslipidemia Surgical History History of back surgery History of appendectomy Social History Smoking Status: Never smoker Tobacco Type: Cigars Second Hand Exposure: No; Do You Dip or Chew Tobacco: No; Hx Alcohol Use: No Hx Substance Use: No Preferred Language: Montserratian Communication Ability: Effective [employer] Labourer Required: No Beliefs That Will Affect Care: None marital status: Current Living Situation: Spouse Current Living Situation Comment: Wth Feels Safe at Home: Yes Assistive Devices: Hearing Aid - Bilateral Review of Systems Review of Systems: ROS per HPI, all other systems reviewed and negative Physical Exam Constitutional: WD/WN, vitals as above no acute distress Eyes: PERRL, conjunctivae normal, anicteric sclerae ENMT: external ear and nose normal, oropharynx normal Respiratory: normal respiratory effort, lungs clear to auscultation Cardiovascular: Rate/Rhythm: regular rate and regular rhythm Vessels: normal peripheral pulses Extremities: no edema Gastrointestinal (Abdomen): normal bowel sounds, soft, nontender, no hepatosplenomegaly Musculoskeletal: no cyanosis or clubbing, extremities motor strength 5/5 Skin: no rashes, warm and dry Neurologic: PERRL, EOMI, accommodation nl, no face palsy, no dysarthria Psychiatric: A+Ox3, euthymic affect Genitourinary: no CVA tenderness Results & Data Results & Data Vital Signs (Past 12 Hours) Vital Signs Temp Pulse Resp BP Pulse Ox O2 Del Method 05/05/24 10:06 80 19 119/69 96 05/05/24 09:30 86 23 128/74 91 Room Air 05/05/24 09:12 92 H 24 129/72 92 Room Air 05/05/24 09:10 37.4 C 05/05/24 08:42 88 24 123/84 96 Room Air 05/05/24 08:11 108 H 05/05/24 08:03 106 H 24 95 Room Air 05/05/24 07:37 37.7 C H 116 H 20 132/83 91 Room Air Laboratory Results Short CBC 05/05/24 Range/Units 07:55 WBC 14.18 H (4.8-10.8) K/ul Hgb 13.7 L (14.0-18.0) g/dl Hct 40.1 L (42.0-52.0) % Plt Count 217 (130-400) K/uL BMP 05/05/24 07:55 Sodium 133 L Potassium 4.0 Chloride 99 Carbon Dioxide 23 BUN 20 Creatinine 1.25 Glucose 158 H Calcium 9.2 Liver Function 05/05/24 Range/Units 07:55 Total Bilirubin 0.6 (0.2-1.0) mg/dl Direct Bilirubin 0.2 (0-0.2) mg/dl AST 16 (13-39) U/L ALT 16 (7-52) U/L Alkaline Phosphatase 66 (34-104) U/L Albumin 4.0 (3.4-5.0) gm/dl Urine 05/05/24 Range/Units Unknown Urine Color Yellow Urine Appearance Cloudy A (Clear) Urine pH 7.0 (4.5-7.5) Ur Specific [place] 1.015 (1.000-1.030) Urine Protein 1+ H (Negative) Urine Glucose (UA) Negative (Negative) Diagnostic Findings Chest X-Ray 05/05/24 07:50 XR chest 1V portable HISTORY: Sepsis COMPARISON: None. FINDINGS: The lungs are clear. Cardiac silhouette is normal in size. No pleural effusions. No pneumothorax. IMPRESSION: No acute process. ACT 112: Negative or not required by law. Electronically signed by: Baldo Kingston M.D. 05/05/2024 9:01 AM Abdomen/Pelvis CT 05/05/24 07:[address] WITHOUT CONTRAST CT DOSE: 1583.22 mGy.cm HISTORY: Acute fever in a patient with history of kidney stones fever, hx of stones TECHNIQUE: Multiaxial CT images of the abdomen and pelvis were performed without contrast. A dose lowering technique was utilized adhering to the principles of ALARA. COMPARISON STUDY: 04/10/2024 FINDINGS: Mild right hemidiaphragmatic elevation. Trace pleural effusions. Moderate coronary artery calcifications. Trace pericardial effusions. Mild bibasilar atelectasis versus scarring. No free air. The unenhanced spleen is unremarkable with punctate calcified granulomata. Unremarkable pancreas, and adrenal glands. Possible layering sludge versus cholelithiasis. Unremarkable liver. Bilateral mild nonspecific perinephric stranding. Numerous nonobstructing bilateral renal calculi measuring up to 12 mm on the right and approximately 8 mm on the left. Cyst of the superior pole left kidney measures 2.5 cm. No ureteral calculi or hydronephrosis. Urinary bladder wall thickening with partial distention. Suggestion of bilateral urothelial thickening of the renal collecting systems. Prostatomegaly. Small fat filled left inguinal hernia. Atherosclerosis of the aorta without aneurysm. No lymphadenopathy. There is no bowel obstruction or bowel wall thickening. Colonic diverticulosis without acute diverticulitis. The appendix is reportedly surgically absent. Unremarkable soft tissues. Degenerative and postoperative changes of the spine. Posterior interbody daxa and screw fusion hardware at L2-S1 with L5-S1 discectomy. The left-sided pedicle screw at L2 is again noted partially extending into the superior endplate. There is associated lucency surrounding the screw. Severe disc space narrowing with endplate irregularity redemonstrated at the L1-L2 level which is unchanged from prior. IMPRESSION: 1. Nonobstructing bilateral renal calculi. No ureteral calculi or hydronephrosis. 2. Urothelial thickening of the renal collecting systems should be correlated with urinalysis to exclude infection. 3. No bowel obstruction or bowel wall thickening. 4. Colonic diverticulosis. 5. Additional findings as above. ACT 112: Negative or not required by law. The above report was generated using voice recognition software. It may contain grammatical, syntax or spelling errors. Electronically signed by: Genaro Donis M.D. 05/05/2024 9:44 AM Code Status & VTE Plan VTE Prophylaxis Plan VTE Prophylaxis will be ordered: Yes Supervising Physician Co-Signing Physician Notes Attending Addendum: Case reviewed with the advanced practitioner. I have personally performed a history and physical examination on the patient. I have reviewed the advanced practitioner's documentation on the date of service referenced in note, and I agree with, and take responsibility for the plan of care. please refer to her notes for full details patient seen and examined, records reviewed by myself as well on exam, patient seen resting in bed, comfortable feels somewhat weak, otherwise ok overall VS noted and reviewed oriented x 3, not in distress, speaks in sentences with no effort nor accessory muscle use normal rate, regular rhythm, no murmurs clear breath sounds bilaterally non distended, soft, nontender no CVA tenderness no bipedal edema, erythema, warmth no neuro deficits all labs, imaging noted and reviewed ASSESSMENT AND PLAN Sepsis, likely secondary to Recurrent UTI in the setting of Nephrolithiasis, Prostatomegaly ff up cultures on IV Zosyn Urology consulted other diagnoses and plan of care as per advanced practitioner's notes Remy Nielsen MD
[2024-05-05] MEDS: MAGNESIUM SULFATE / D5W 1 GM/100 ML BAG IV ONE (10:43)
[2024-05-05] MEDS: ENOXAPARIN INJ 40 MG/0.4 ML SYR SQ SCH (11:15)
--- NOTE | 2024-05-05 12:51 | Electrocardiogram Report ---
Test Reason : Blood Pressure : / mmHG Vent. Rate : 105 BPM Atrial Rate : 105 BPM P-R Int : 168 ms QRS Dur : 078 ms QT Int : 306 ms P-R-T Axes : 025 044 038 degrees QTc Int : 404 ms Sinus tachycardia Low voltage QRS Borderline ECG When compared with ECG of 10-APR-2024 17:34, Vent. rate has increased BY 41 BPM Confirmed by Fitz Colón ([id number]) on 05/05/2024 12:51:34 PM Referred By: REFERRED SELF Confirmed By:Giuseppe Colón
[2024-05-05] MEDS: ACETAMINOPHEN 325 MG TAB PO PRN (15:59)
[2024-05-05] MEDS: IBUPROFEN 800 MG TAB PO STA (17:14)
--- NOTE | 2024-05-05 17:23 | Communication Note ---
Date of Service: May 05, 2024 Notified by nursing of fever of 38.8 despite Tylenol. Will give ibuprofen 800 mg x 1 and broaden antibiotics to IV Zosyn. DENNIS Wing Hospitalist
[2024-05-05] MEDS: PIPER/TAZO 4.5g in D5W MINI-B 100 ML IV ONE (18:29)
[2024-05-05] MEDS: PIPERACILLIN/TAZOBACTAM 4.5 GM in DEXTROSE 5% MINI-B 100 ML IV SCH (23:47)
[2024-05-06 07:01] LABS: Hematocrit (blood only) 36.7 % (42.0-52.0); Hemoglobin 12.3 g/dl (14.0-18.0); Mean Corpuscular Hgb Conc 33.5 g/dL (32.0-36.0); Mean Corpuscular Volume 95.6 fL (80.0-100.0); Mean Platelet Volume 9.3 fL (9.4-12.4); Platelet Count 183 K/uL (130-400); Red Blood Count 3.84 M/uL (4.70-6.10); White Blood Count 10.23 K/ul (4.8-10.8)
[2024-05-06 07:23] LABS: BUN Creatinine Ratio 14.4 (10-20); Calcium 8.2 mg/dl (8.6-10.3); Creatinine Clr Calc Pharmacy 64.6 ml/min; Est GFR (African American) 68.6 ml/min; Est GFR (Non-African American) 59.2 ml/min; Magnesium 1.9 mg/dl (1.7-2.4); Potassium 3.7 mmol/L (3.5-5.1)
[2024-05-06] MEDS ORDERED: cefTRIAXone SODIUM 2,000 MG/50 ML BAG IV SCH (08:00)
[2024-05-06] MEDS: ROSUVASTATIN CALCIUM 10 MG TAB PO SCH (08:52)
[2024-05-06] MEDS: FINASTERIDE 5 MG TAB PO SCH (08:53)
[2024-05-06] MEDS: TAMSULOSIN HCL 0.4 MG CAP PO SCH (08:53)
[2024-05-06] MEDS: allopurinoL 300 MG TAB PO SCH (08:53)
--- NOTE | 2024-05-06 09:40 | Urology Consultation ---
Date of Consultation May 06, 2024 Assessment & Plan (1) Acute UTI (urinary tract infection): (2) Multiple renal calculi: Plan This is a 79-year-old male with multiple bilateral nonobstructing renal stones and likely a urinary tract infection. There does not appear to be any focal obstruction of the upper tract, therefore no surgical intervention is necessary at this time. Recommend continuing broad-spectrum antibiotics, narrowing coverage as culture data becomes available. Would perform bladder scan/PVR intermittently to make sure he is emptying well. If this is elevated, could consider CIC or catheter placement. Continue tamsulosin and finasteride to help with his bladder outlet. He may benefit from definitive stone treatment as there may be enough stone burden that these could be acting as a nidus for recurrent infection. Such a procedure would be performed as an outpatient and not in the setting of an acute UTI. Urology will coordinate outpatient follow-up to continue this discussion. Urology will sign off for now, please call with any questions or concerns. History of Present Illness Reason for Consultation: Recurrent UTI, nephrolithiasis Attending Physician: Lavern Ferris MD History of Present Illness This is a 79-year-old male followed by urology for recurrent urinary tract infections as well as nephrolithiasis. He was most recently seen in the urology office on 05/03/2024, at which time he was not having any voiding concerns. He has been on tamsulosin and finasteride to manage his bladder outlet. He tells me he had a relatively low PVR. He has a known history of nephrolithiasis. Although various management options were discussed at his office visit, he wanted to continue to monitor at that time. He presented to the emergency department on 05/05/2024 with malaise, fever, nausea and vomiting. At that time, he was tachycardic and lactate was mildly elevated with UA suggestive of UTI. He received fluid resuscitation with good response. He has been on antibiotics since then. Labs in the ED were notable for mild leukocytosis (WBC 14.18). Creatinine was 1.25. Urinalysis demonstrated no bacteria, 3+ leukocyte esterase, 3+ blood and greater than 50 WBC per high-power field. Blood and urine cultures are pending. A CT scan of the abdomen and pelvis was performed on 05/05/2024. I independently reviewed these images. Both kidneys are in normal position. There is no significant hydronephrosis bilaterally. He has a cyst of the left kidney. He has multiple, nonobstructing stones bilaterally. The largest cluster of these measures slightly over 1 cm. No ureteral stones are seen. His bladder is mostly decompressed. Prostate is mildly enlarged. Allergies Allergy/AdvReac Type Severity Reaction Status Date / Time No Known Allergies Allergy Unverified 05/05/24 09:27 Home Medications Medication Instructions Recorded Confirmed Type allopurinol 300 mg tablet 300 mg PO QAM 11/13/20 05/05/24 History lisinopril 10 mg tablet 10 mg PO QAM 11/13/20 05/05/24 History multivitamin 1 tab PO DAILY 11/13/20 05/05/24 History rosuvastatin 10 mg tablet 10 mg PO DAILY 11/13/20 05/05/24 History tamsulosin 0.4 mg capsule 0.4 mg PO DAILY 03/11/24 05/05/24 History finasteride 5 mg tablet 5 mg PO QAM #90 tabs 05/03/24 05/05/24 Rx Patient History Medical History BPH with obstruction/lower urinary tract symptoms Hypertension Gout Dyslipidemia Surgical History History of back surgery History of appendectomy Social History Smoking Status: Never smoker Tobacco Type: Cigars Second Hand Exposure: No; Do You Dip or Chew Tobacco: No; Hx Alcohol Use: No Hx Substance Use: No Preferred Language: [place]in[place] Communication Ability: Effective Watch Inspector Required: No Beliefs That Will Affect Care: None marital status: Current Living Situation: Spouse Current Living Situation Comment: Wth Feels Safe at Home: Yes Assistive Devices: Hearing Aid - Bilateral Review of Systems Review of Systems: 12 point review of systems negative exce pt for otherwise indicated. Physical Exam Constitutional: well developed and well nourished; no acute distress Eyes: + anicteric sclerae; pupils not irregula r Respiratory: normal respiratory effort; no respiratory distress, does not use accessory muscles and no cough Cardiovascular: well perfused Gastrointestinal (Abdomen): Inspection/Auscultation: abdomen normal to inspection; abdomen not distended Musculoskeletal: Extremities: extremities normal to inspection Skin: normal turgor; no rashes and no lesions Neurologic: moves all extremities and awake Psychiatric: Orientation: alert and oriented x 3 Results & Data Vital Signs (Past 12 Hours) Vital Signs Temp Pulse Resp BP Pulse Ox O2 Del Method 05/06/24 07:25 36.8 C 66 19 125/78 96 Room Air 05/05/24 22:21 36.5 C 57 L 16 107/65 96 Room Air PG Care Time/CCT Total # of Minutes Spent Total Time Spent with Patient: Total time spent is greater than 50% in coordination of care (as documented) at patient's floor/unit and/or counseling patient: Coding Level of Care Code 25288 INT INP/OBS CARE 2/55MIN Diagnoses Acute UTI (urinary tract infection) N39.0 Multiple renal calculi N20.0
--- NOTE | 2024-05-06 13:03 | Hospitalist Progress Note ---
Date of Service May 06, 2024 Assessment & Plan (1) Sepsis: Plan 79-year-old male with PMH of HTN, gout, BPH, renal calculi, HLD presented to the ED 05/05 for evaluation of fever, nausea, vomiting, pain and burning with passing urine. He is being managed for the following: Sepsis POA: likely 2/2 UTI Acute UTI (urinary tract infection): Multiple renal calculi: BPH with obstruction/lower urinary tract symptoms: Patient presenting from home with reports of fever, nausea, vomiting and pain/burn while passing urine. In the ED, patient tachycardic in the low 100s, WBC 14 K, lactate 2.1, UA suggestive of UTI. Heart rate and lactate improved with IVF. History of UTI 02/2024 with urine culture growing Proteus History of BPH and renal calculi. CT ABD/pelvis showing prostatomegaly, nonobstructing bilateral renal calculi. No ureteral calculi or hydronephrosis. Urothelial thickening noted. C/w zosyn 05/05 Follow urine and blood cultures Will need outpatient follow-up with urology, notified Bev COLLINS of patient's hospital admission Hypertension: c/w home BP meds as able. Gout: Continue allopurinol Dyslipidemia: Continue statin DVT PROPHYLAXIS: SQ Lovenox Admission and Anticipated Discharge Date Admission Date: May 05, 2024 Subjective Patient was seen and examined at bedside. Patient was lying in bed, on room air, resting comfortably, NAD. Patient reports feeling significantly better,, denies nausea or vomiting, reports improving strength. Physical Exam Physical Exam: GENERAL: Alert and oriented x3. NAD, on RA. Obese class I. HEENT: No pallor, no icterus. Pupils equal, round and reactive to light. Oral mucosa moist. NECK: No JVD, no neck masses. HEART: S1 and S2 heard. Regular rate and rhythm. No murmur, no gallop. RESPIRATORY SYSTEM: Normal AP diameter. No accessory muscle use. No wheezing, no crackles. ABDOMEN: Soft, bowel sounds present, nontender, no distention. CENTRAL NERVOUS SYSTEM: No facial droop. Speech is clear. Obeys simple commands. Moves extremities. EXTREMITIES: No edema, no erythema seen. Results & Data Results & Data Vital Signs (Past 12 Hours) Vital Signs Temp Pulse Resp BP Pulse Ox O2 Del Method 05/06/24 07:25 36.8 C 66 19 125/78 96 Room Air (1) Sepsis Sepsis acute organ dysfunction status: unspecified Sepsis type: sepsis due to unspecified organism Qualified Code(s): A41.9 - Sepsis, unspecified organism
[2024-05-06] MEDS: POLYETHYLENE (MIRALAX) 17 GM PACK PO PRN (18:02)
[2024-05-07 06:29] LABS: Hematocrit (blood only) 36.8 % (42.0-52.0); Hemoglobin 12.3 g/dl (14.0-18.0); Mean Corpuscular Hemoglobin 31.2 pg (25.0-34.0); Mean Corpuscular Hgb Conc 33.4 g/dL (32.0-36.0); Mean Corpuscular Volume 93.4 fL (80.0-100.0); Mean Platelet Volume 9.3 fL (9.4-12.4); Platelet Count 205 K/uL (130-400); RDW Coefficient of Variation 13.6 % (11.5-14.5); RDW Standard Deviation 46.5 fL (36.4-46.3); Red Blood Count 3.94 M/uL (4.70-6.10); White Blood Count 7.39 K/ul (4.8-10.8)
[2024-05-07 06:37] LABS: Calcium 8.4 mg/dl (8.6-10.3); Creatinine Clr Calc Pharmacy 70.6 ml/min; Est GFR (African American) 76.3 ml/min; Est GFR (Non-African American) 65.9 ml/min; Magnesium 1.8 mg/dl (1.7-2.4); Phosphorus 2.6 mg/dl (2.5-4.9); Potassium 3.6 mmol/L (3.5-5.1)
[2024-05-07] MEDS: lisinopril 10 MG TAB PO SCH (08:15)
--- NOTE | 2024-05-07 11:29 | Discharge Summary ---
Date of Service May 07, 2024 Admission HPI Per Admitting Provider 79-year-old male with PMH HTN, gout, BPH, renal calculi, 79-year-old male with PMH HTN, gout, BPH, renal calculi, HLD, and other problems listed below who presents to the ED for evaluation of fever, nausea, vomiting. History is obtained from the patient and review of outpatient PCP and urology records. Patient reports last evening he developed shaking chills, fever, vomiting. Reports he continued to have a fever this morning of 101. Patient then presented to the ED for further evaluation. Patient does carry a history of UTI and kidney stones. Was seen by urology as an outpatient on 05/03 for routine visit and had no complaints at that time. Patient reports chronic back pain that is unchanged from baseline. He reports he developed dysuria yesterday, no hematuria. Denies chest pain and shortness of breath. No lightheadedness, dizziness, diaphoresis, syncopal events. He denies abdominal pain. In the ED, patient was tachycardic in the low 100s. labs show WBC 14 K, lactate 2.1, UA suggestive of UTI. CT ABD/pelvis shows Nonobstructing bilateral renal calculi. No ureteral calculi or hydronephrosis. Patient was given Tylenol, IVF, IV ceftriaxone. Admission Exam Per Admitting Provider Constitutional: WD/WN, vitals as above no acute distress Eyes: PERRL, conjunctivae normal, anicteric sclerae ENMT: external ear and nose normal, oropharynx normal Respiratory: normal respiratory effort, lungs clear to auscultation Cardiovascular: Rate/Rhythm: regular rate and regular rhythm Vessels: normal peripheral pulses Extremities: no edema Gastrointestinal (Abdomen): normal bowel sounds, soft, nontender, no hepatosplenomegaly Musculoskeletal: no cyanosis or clubbing, extremities motor strength 5/5 Skin: no rashes, warm and dry Neurologic: PERRL, EOMI, accommodation nl, no face palsy, no dysarthria Psychiatric: A+Ox3, euthymic affect Genitourinary: no CVA tenderness Principal Diagnosis Sepsis POA Acute UTI Multiple renal calculi BPH with obstruction/lower urinary tract symptoms Discharge Exam GENERAL: Alert and oriented x3. NAD, on RA. Obese class I. HEENT: No pallor, no icterus. Pupils equal, round and reactive to light. Oral mucosa moist. NECK: No JVD, no neck masses. HEART: S1 and S2 heard. Regular rate and rhythm. No murmur, no gallop. RESPIRATORY SYSTEM: Normal AP diameter. No accessory muscle use. No wheezing, no crackles. ABDOMEN: Soft, bowel sounds present, nontender, no distention. CENTRAL NERVOUS SYSTEM: No facial droop. Speech is clear. Obeys simple commands. Moves extremities. EXTREMITIES: No edema, no erythema seen. Discharge Data Allergies Allergy/AdvReac Type Severity Reaction Status Date / Time No Known Allergies Allergy Unverified 05/05/24 09:27 Consultations 05/05/24 09:39 ED Decision to Admit Stat 05/05/24 20:58 Consult Urology Routine Ordered Studies 05/05/24 07:53 CT stones [CT abd pelvis wo con] Stat Hospital Course (1) Sepsis: Plan 79-year-old male with PMH of HTN, gout, BPH, renal calculi, HLD presented to the ED 05/05 for evaluation of fever, nausea, vomiting, pain and burning with passing urine. He was managed for the following: Sepsis POA: likely 2/2 UTI Acute UTI (urinary tract infection): Multiple renal calculi: BPH with obstruction/lower urinary tract symptoms: Patient presenting from home with reports of fever, nausea, vomiting and pain/burn while passing urine. In the ED, patient tachycardic in the low 100s, WBC 14 K, lactate 2.1, UA suggestive of UTI. Heart rate and lactate improved with IVF. History of UTI 02/2024 with urine culture growing Proteus History of BPH and renal calculi. CT ABD/pelvis showing prostatomegaly, nonobstructing bilateral renal calculi. No ureteral calculi or hydronephrosis. Urothelial thickening noted. C/w zosyn 05/05, to PO atb on dc, probiotics added. Follow urine and blood cultures -- urine Cx contaminant. Bl Cx [id number]. Will need outpatient follow-up with urology, Pt may benefit from definitive stone treatment as there may be enough stone burden that these could be acting as a nidus for recurrent infection. Hypertension: c/w home BP meds as able. Gout: Continue allopurinol Dyslipidemia: Continue statin DVT PROPHYLAXIS: SQ Lovenox Patient is being discharged home with following instruction at the point of discharge: Follow-up with your primary care physician within a week time and likely you will need labs CBC/CMP/magnesium/phosphorus. You were evaluated for acute UTI/recurrent UTI in the setting of multiple renal calculi. Urology evaluated. You may benefit from definitive stone treatment as there may be enough stone burden that this could be acting as a nidus for recurrent infection. You will be discharged on antibiotic to complete the course for complicated UTI. Probiotics will be added. Recommend you follow-up with urology in 1 to 2 weeks time upon discharge and follow-up with PCP within 1 week upon discharge. Follow-up on final results of blood culture drawn while inpatient when you visit your PCP within a week time. Take your medications as prescribed. Please make sure that you are able to get your medications today by calling your pharmacy before you leave the hospital so that your treatment continuity is not broken. Home Health Attestation I certify that this patient is under my care and that I, or a physicians assistant site manager working with me, had a face to-face encounter that meets the home health [id number] encounter requirements with this patient. The encounter with the patient was in whole, or in part, for the following medical condition, which is the primary reason for home health care (list medical condition): I certify that, based on my findings, the following services are medically necessary home health services: My clinical findings support the need for the above services because: Further, I certify that my clinical findings support that this patient is homebound (i.e. absences from home require considerable and taxing effort and are for medical reasons or caodaism services or infrequently or of short duration when for other reasons) because: Certification for Home Health Services: Based on the above findings, I certify that this patient is confined to the home and needs intermittent care home care, physical therapy and/or speech therapy or continues to need occupational therapy. The patient is under my care, and I have initiated the establishment of the plan of care. This patient will be followed by a physician who will periodically review the plan of care. Total Time Total Time Spent Total Time Spent (In Minutes): 45 Discharge Plan Discharge Items Patient Disposition: Home - Self-Care Reason For Visit: UTI Discharge Diagnosis: Sepsis POA Acute UTI Multiple renal calculi BPH with obstruction/lower urinary tract symptoms Activity: Resume your previous activity Non-emergency contact: Primary Care Provider Call non-emergency contact if: you have any medication questions Follow-up/Referrals: Diana Davis PA-C [Primary Care Provider] - Diet: Heart Healthy Addtl Attending Provider Instructions: Follow-up with your primary care physician within a week time and likely you will need labs CBC/CMP/magnesium/phosphorus. You were evaluated for acute UTI/recurrent UTI in the setting of multiple renal calculi. Urology evaluated. You may benefit from definitive stone treatment as there may be enough stone burden that this could be acting as a nidus for recurrent infection. You will be discharged on antibiotic to complete the course for complicated UTI. Probiotics will be added. Recommend you follow-up with urology in 1 to 2 weeks time upon discharge and follow-up with PCP within 1 week upon discharge. Follow-up on final results of blood culture drawn while inpatient when you visit your PCP within a week time. Take your medications as prescribed. Please make sure that you are able to get your medications today by calling your pharmacy before you leave the hospital so that your treatment continuity is not broken. Pending Studies at Discharge: Yes Stand-Alone Forms: [facility] [employer], Smoking Cessation Medications and DC Order Prescriptions: New cefdinir 300 mg capsule 300 mg PO BID 8 Days Qty: 16 0RF Probiotic 3 billion cell capsule 3,000 mmu cells PO DAILY 14 Days Qty: 14 0RF Rx Instructions: administer with a meal Continued finasteride 5 mg tablet 5 mg PO QAM Qty: 90 1RF lisinopril 10 mg tablet 10 mg PO QAM allopurinol 300 mg tablet 300 mg PO QAM rosuvastatin 10 mg tablet 10 mg PO DAILY multivitamin Tablet 1 tab PO DAILY tamsulosin 0.4 mg capsule 0.4 mg PO DAILY Discharge Orders: Discharge Order (Routine); Ordered 05/07/24 Ordered By: Lavern Ferris Admission Data Admit Date/Time: 05/05/24 10:19 Attending Provider: Lavern Ferris Admit Provider: Remy Nielsen Primary Care Provider: Diana Davis Other Providers: Remy Nielsen; Warner Bear; Emanuel Soria; Fitz Mclean; Oma Schneider; Genaro Berg; Bev Rasheed; Priscilla Multani; Moncho Gonzalez; Stacey Feliciano; Raul Loya; Marine Rucker; Javier Parker.
[2024-05-09 11:06] LABS: Babesia microti DNA Not Detected (Not Detected)
== END 2024-05-07 12:36 | disposition home or self-care (01) | DRG 872 ==
LOC: ED 07:34 → EDINP 10:19 → SUATTDRO 10:19 → 3N 10:23